=== PATIENT | male | born 1935 | race Caucasian/White ===

== ENCOUNTER 2018-03-29 10:56 | Inpatient (IN) | payer MEDICARE ==
[~2018-03-29] VITALS: Ht 170.2 cm; Wt 74.4 kg
[2018-03-29] VITALS (7 sets, daily range): BP systolic 160–184; BP diastolic 70–94
[~2018-03-29 10:56] MED LIST changes: -BICA50TA36 PO; -LEUP45SY3 SQ; -METO50TA19 PO; -NITR0.4T3 SL; -RANI-366 PO; -TRAZ150T8 PO
--- NOTE | 2018-03-29 11:17 | ER Report ---
History and Physical Time Seen By MD: 10:55 Hx. of Stated Complaint: CHEST PAIN AND DYSPNEA SINCE 1000 ([facility] SANDOVAL [facility]-) HPI/ROS CHIEF COMPLAINT: Chest pain HISTORY OF PRESENT ILLNESS: This is an 82-year-old male who presents to the emergency department via EMS for chest pain and shortness of breath. Patient states that about 10:00 today after returning from the bathroom he developed some shortness of breath, decided to sit down and eat a burrito continue to have some shortness of breath and then developed some anterior chest pain, became lightheaded, diaphoretic and had some nausea. He took one of his nitroglycerin at home, started to feel some relief. EMS was dispatched, upon arrival they did give him 1 more nitroglycerin in addition to 81mg aspirin x4. Patient states he did feel much better after the nitroglycerin. Upon arrival the patient states that his shortness of breath and chest pain have basically resolved. He is no longer nauseous or diaphoretic. Patient denies headaches, rashes, vomiting, chills or recent illnesses. REVIEW OF SYSTEMS: Constitutional: No fever, no chills. Eyes: No discharge. ENT: No sore throat. Cardiovascular: As above. Respiratory: As above. Gastrointestinal: As above. Genitourinary: No hematuria. Musculoskeletal: No back pain. Skin: No rashes. Neurological: No headache. ([facility]-) Allergies: Coded Allergies: codeine (Verified Allergy, Mild, DIZZY, 03/29/18) Home Meds Reported Medications Leuprolide Acetate (ELIGARD) 45 Mg Disp.syrin, 45 MG SQ 03/29/18 Bicalutamide (BICALUTAMIDE) 50 Mg Tablet, 50 MG PO DAILY 03/29/18 Metoprolol Succinate (METOPROLOL SUCCINATE) 50 Mg Tab.er.24h, 1 TAB PO BID, TAB 03/29/18 Trazodone Hcl (TRAZODONE HCL) 150 Mg Tablet, 150 MG PO QHS 03/29/18 Ranitidine Hcl (ZANTAC) 150 Mg Tablet, 150 MG PO BID, TAB 03/29/18 Nitroglycerin (NITROGLYCERIN) 0.4 Mg Tab.subl, 0.4 MG SL Q5MIN 03/29/18 [lipoflavonoid] No Conflict Check, 1 TAB PO DAILY 10/14/16 Tamsulosin Hcl (TAMSULOSIN HCL) 0.4 Mg Cap.er.24h, 0.4 MG PO DAILY, CAP 10/14/16 [multivit] No Conflict Check, 1 TAB PO BID 10/14/16 Lisinopril (LISINOPRIL) 10 Mg Tablet, 0.5 MG PO QDAY, TAB 10/14/16 Isosorbide Mononitrate (ISOSORBIDE MONONITRATE ER) 30 Mg Tab.er.24h, 30 MG PO DAILY 10/14/16 Hum Insulin Nph/Reg Insulin Hm (NOVOLIN 70-30 100 UNIT/ML VIAL) 100 Unit/1 Ml Vial, 100 UNIT SQ, VIAL 30 units in the morning 20 units in the evening 10/14/16 Clopidogrel Bisulfate (CLOPIDOGREL) 75 Mg Tablet, 1 TAB PO QDAY, TAB 10/14/16 Atorvastatin (LIPITOR) 80 Mg Tab, 0.5 TAB PO QHS, TAB 10/14/16 Aspirin (ASPIR 81) 81 Mg Tablet.dr, 81 MG PO QDAY, TAB 10/14/16 Discontinued Reported Medications Pantoprazole Sodium (PANTOPRAZOLE SODIUM) 40 Mg Tablet.dr, 40 MG PO QDAY, TAB.SR 10/14/16 Metoprolol Tartrate (METOPROLOL TARTRATE) 50 Mg Tab, 1.5 TAB PO BID, TAB 10/14/16 Amlodipine Besylate (AMLODIPINE BESYLATE) 5 Mg Tablet, 1 TAB PO QDAY, TAB 10/14/16 Past Medical/Surgical History Patient has a past medical and surgical history of heart attack, stents, hypertension, hypercholesterolemia, prostate cancer, wears glasses, hard of hearing with hearing aids, type II diabetes, CABG 4. ([facility]) Reviewed Nurses Notes: Yes (BENI SANDOVAL) Constitutional Vital Sign - Last 24 Hours 03/29/18 03/29/18 03/29/18 03/29/18 10:56 11:05 11:06 11:11 Temp 97.5 Pulse 73 75 Resp 17 28 B/P (MAP) 178/83 (114) Pulse Ox 96 97 O2 Delivery Nasal Cannula O2 Flow Rate 4.0 03/29/18 03/29/18 03/29/1818 11:15 11:30 11:41 11:45 Pulse 68 Resp 35 B/P (MAP) 165/75 (105) 174/75 (108) 162/71 (101) Pulse Ox 100 03/29/18 03/29/18 03/29/18 03/29/18 11:50 12:00 12:05 12:15 Pulse 68 70 Resp 27 22 B/P (MAP) 172/76 (108) 175/72 (106) Pulse Ox 100 99 03/29/18 03/29/18 03/29/18 03/29/18 12:20 12:30 12:45 12:50 Pulse 66 64 Resp 20 B/P (MAP) 164/69 (100) 161/67 (98) Pulse Ox 98 03/29/18 03/29/18 03/29/18 03/29/18 13:00 13:05 13:15 13:25 Pulse 63 65 Resp 26 20 B/P (MAP) 160/71 (100) 167/68 (101) Pulse Ox 98 98 03/29/18 03/29/18 03/29/18 03/29/18 13:30 13:40 13:45 13:55 Pulse 66 65 Resp 9 25 B/P (MAP) 174/73 (106) 173/81 (111) Pulse Ox 99 99 03/29/18 03/29/18 03/29/18 14:00 14:10 14:15 Pulse 65 Resp 21 B/P (MAP) 168/70 (102) 165/69 (101) Pulse Ox 99 (RASTA OSBORN MD) Physical Exam General Appearance: The patient is alert, has no immediate need for airway protection and no signs of toxicity. Eyes: Left pupil slightly larger than the right, it is not round, secondary to injury however both pupils are reactive to light and accommodation. No pallor or injection. ENT, Mouth: Mucous membranes are moist. Respiratory: There are no retractions, lungs are diminished throughout but clear to auscultation. Cardiovascular: Regular rate and rhythm, no murmurs, clicks or rubs. Gastrointestinal: Abdomen is soft and non tender, no masses, bowel sounds normal. Neurological: Alert and oriented 4. Moving all extremities. No focal neuro deficits. Following all commands. Skin: Warm and dry, no rashes. Healing scar to the left antecubital fossa secondary to shunt placement for dialysis. Musculoskeletal: Neck is supple non tender. Extremities are nontender, nonswollen and have full range of motion. DIFFERENTIAL DIAGNOSIS: After history and physical exam differential diagnosis was considered for chest pain including but not limited to myocardial ischemia, pericarditis pulmonary embolus, chest wall pain, pleural inflammation and pulmonary infectious causes. ([facility]-) Medical Decision Making Data Points Result Diagram: 03/29/18 1058 03/29/18 1058 Laboratory Hematology Test 03/29/18 10:58 03/29/18 13:11 Red Blood Count 4.09 M/uL (4.00-5.60) Mean Corpuscular Volume 91.9 fL (80.0-96.0) Mean Corpuscular Hemoglobin 31.0 pg (26.0-33.0) Mean Corpuscular Hemoglobin Concent 33.8 g/dL (32.0-36.0) Red Cell Distribution Width 14.2 % (11.5-14.5) Mean Platelet Volume 9.2 fL (7.2-11.1) Neutrophils (%) (Auto) 74.5 % (39.4-72.5) Lymphocytes (%) (Auto) 15.9 % (17.6-49.6) Monocytes (%) (Auto) 8.1 % (4.1-12.4) Eosinophils (%) (Auto) 1.1 % (0.4-6.7) Basophils (%) (Auto) 0.4 % (0.3-1.4) Nucleated RBC Relative Count (auto) 0.0 /100WBC Neutrophils # (Auto) 7.1 K/uL (2.0-7.4) Lymphocytes # (Auto) 1.5 K/uL (1.3-3.6) Monocytes # (Auto) 0.8 K/uL (0.3-1.0) Eosinophils # (Auto) 0.1 K/uL (0.0-0.5) Basophils # (Auto) 0.0 K/uL (0.0-0.1) Nucleated RBC Absolute Count (auto) 0.00 K/uL Sodium Level 142 mmol/L (137-145) Potassium Level 4.7 mmol/L (3.5-5.0) Chloride Level 107 mmol/L (98-107) Carbon Dioxide Level 21 mmol/L (22-30) Blood Urea Nitrogen 31 mg/dl (9-21) Creatinine 3.10 mg/dl (0.66-1.25) Glomerular Filtration Rate Calc 19.4 Random Glucose 132 mg/dl (75-110) Calcium Level 9.3 mg/dl (8.4-10.2) Total Bilirubin 0.6 mg/dl (0.2-1.3) Aspartate Amino Transf (AST/SGOT) 23 U/L (0-35) Alanine Aminotransferase (ALT/SGPT) 13 U/L (0-56) Alkaline Phosphatase 83 U/L (0-126) B-Type Natriuretic Peptide 1350 pg/ml (0-100) Total Protein 6.7 gm/dl (6.3-8.2) Albumin 3.7 g/dl (3.5-5.0) Troponin I 0.030 ng/ml Chemistry Test 03/29/18 10:58 03/29/18 13:11 White Blood Count 9.5 k/uL (4.5-11.0) Red Blood Count 4.09 M/uL (4.00-5.60) Hemoglobin 12.7 g/dL (14.0-18.0) Hematocrit 37.6 % (42.0-52.0) Mean Corpuscular Volume 91.9 fL (80.0-96.0) Mean Corpuscular Hemoglobin 31.0 pg (26.0-33.0) Mean Corpuscular Hemoglobin Concent 33.8 g/dL (32.0-36.0) Red Cell Distribution Width 14.2 % (11.5-14.5) Platelet Count 172 K/uL (150-450) Mean Platelet Volume 9.2 fL (7.2-11.1) Neutrophils (%) (Auto) 74.5 % (39.4-72.5) Lymphocytes (%) (Auto) 15.9 % (17.6-49.6) Monocytes (%) (Auto) 8.1 % (4.1-12.4) Eosinophils (%) (Auto) 1.1 % (0.4-6.7) Basophils (%) (Auto) 0.4 % (0.3-1.4) Nucleated RBC Relative Count (auto) 0.0 /100WBC Neutrophils # (Auto) 7.1 K/uL (2.0-7.4) Lymphocytes # (Auto) 1.5 K/uL (1.3-3.6) Monocytes # (Auto) 0.8 K/uL (0.3-1.0) Eosinophils # (Auto) 0.1 K/uL (0.0-0.5) Basophils # (Auto) 0.0 K/uL (0.0-0.1) Nucleated RBC Absolute Count (auto) 0.00 K/uL Glomerular Filtration Rate Calc 19.4 Calcium Level 9.3 mg/dl (8.4-10.2) Total Bilirubin 0.6 mg/dl (0.2-1.3) Aspartate Amino Transf (AST/SGOT) 23 U/L (0-35) Alanine Aminotransferase (ALT/SGPT) 13 U/L (0-56) Alkaline Phosphatase 83 U/L (0-126) B-Type Natriuretic Peptide 1350 pg/ml (0-100) Total Protein 6.7 gm/dl (6.3-8.2) Albumin 3.7 g/dl (3.5-5.0) Troponin I 0.030 ng/ml ([facility]) EKG/Imaging EKG Interpretation 12 lead EKG: Time of EKG 1058. Rhythm: Normal sinus rhythm, 75 bpm. [place]: normal QRS: normal ST segments: About a half box of ST elevation in V1, and lead 3. Otherwise no other ST depression or elevation identified. 12 lead EKG: Repeat EKG time 1310. Rhythm: Normal sinus rhythm, ventricular rate 61 bpm. [place]: normal QRS: normal ST segments: About a half box of ST elevation in V1, and lead 3. Otherwise no other ST depression or elevation identified. No EKG changes from the initial EKG. Imaging Location: [facility] [place] Patient: Misael Gil : 1935 Visit/Account:[id number] Date of Sevice: 03/29/2018 Exam type: CHEST PA AND LAT History: Chest Pain Comparison: None. Findings: There are sternotomy sutures present. There is blunting of both costophrenic angles, right greater than left consistent with pleural thickening versus pleural effusions. Patchy airspace consolidation seen throughout the right mid and lower lung field and the left lung base. Differential diagnosis would include chronic changes versus an acute infectious/inflammatory process. Pleural-based calcifications are seen over the inferior aspect the left thorax. The cardiac silhouette is normal in size. IMPRESSION: 1. Blunting of both costophrenic angles, right greater than left consistent with pleural thickening versus pleural effusions Patchy airspace consolidation seen throughout the right mid and lower lung field left lung base. Differential diagnosis would include chronic changes versus an acute infectious/inflammatory process. There are no old films of elbow for comparison Pleural-based calcination occasions are present over the inferior aspect the left thorax Report Dictated By: Rhea Mclean MD at 03/29/2018 11:41 AM Report E-Signed By: Rhea Mclean MD at 03/29/2018 11:43 AM WSN:[email or web address] ([facility]) ED Course/Re-evaluation Clinical Indication for ER IV: IV Access ED Course The patient was admitted to room. A history and physical were obtained. Differential diagnoses were considered. An IV started. A CBC, CMP, troponin, and BNP were obtained. CBC unremarkable. Chemistries showing BUN 31, creatinine 3.10, troponins negative 2 however the 2nd troponin did bump to .030, BNP 1350. Two-view chest x-ray showing blunting of both cosmetic angles, consistent with pleural thickening versus pleural effusions. Patchy airspace consolidation on the right and left lung bases could be an acute infectious process however, also be inflammatory process. The agent at this time is afebrile, normotensive and heart rate in the 60s so at this point an infectious process is unlikely. This is likely a congestive heart failure exacerbation. I did review these results with the patient and the family and did tell them that I would like to discuss this case with Dr. Verdugo the hospitalist and get his input on whether or not he feels that he could manage this as an inpatient or this is something he feels we should send to another facility. Dr. Verdugo I felt that he could manage the exacerbation inpatient and the patient will be admitted to the medical surgical unit. I did review this with the family and are in agreement with the plan of care. At the time of admission the patient is pain-free, no shortness of breath has no complaints at this time. 03/29/2018 1:57:44 pm I did speak with Dr. Verdugo who is on-call for the hospitalist group, we discussed the case and he is except for the patient in to his services for ingestive heart failure exacerbation. The patient and family are in agreement with this plan of care the patient will be admitted to the medical surgical unit. Decision to Disposition Date: March 29, 2018 Decision to Disposition Time: 13:57 (BENI SANDOVAL) Depart Departure Latest Vital Signs Vital Signs Date Time Temp Pulse Resp B/P (MAP) Pulse Ox O2 Delivery O2 Flow Rate FiO2 03/29/18 14:15 165/69 (101) 03/29/18 14:10 65 21 99 03/29/18 11:06 4.0 03/29/18 10:56 97.5 Nasal Cannula (RASTA OSBORN MD) Impression: Primary Impression: CHF exacerbation Condition: Improved Disposition: Admitted from ER [facility] [facility]/PA consult with MD: Examined Patient MD Consult Note: I saw this patient along with Beni at the patient's arrival. Chest pain relieved by aspirin and nitro. History of significant cardiovascular and renal disease as noted. Initial EKG without signs of STEMI. Initial troponin was negative and repeat with negligible change. Elevated BNP and chest x-ray appears to show signs of congestion, radiology read as possible consolidation. Repeat EKG unchanged. The patient will be admitted here for what appears to be CHF exacerbation. (RASTA OSBORN MD) Problem Qualifiers Primary Impression: CHF exacerbation Heart failure type: unspecified Qualified Codes: I50.9 - Heart failure, unspecified BENI SANDOVAL March 29, 2018 11:17 RASTA OSBORN MD March 29, 2018 13:49
[2018-03-29 11:27] LABS: PLATELET COUNT, AUTOMATED 172 K/uL (150-450)
[2018-03-29] MEDS ORDERED: METO50TA19 PO (11:29)
[2018-03-29] MEDS ORDERED: NITR0.4T3 SL (11:29)
[2018-03-29] MEDS ORDERED: BICA50TA36 PO (11:29)
[2018-03-29] MEDS ORDERED: TRAZ150T8 PO (11:29)
[2018-03-29] MEDS ORDERED: LEUP45SY3 SQ (11:29)
[2018-03-29] MEDS ORDERED: RANI-366 PO (11:29)
--- NOTE | 2018-03-29 11:47 | RADIOLOGY IMAGING REPORT ---
FACILITY: [facility] PATIENT NAME: Misael Gil : 1935 MR: [id number] V: [id number] EXAM DATE: ORDERING PHYSICIAN: DOMONIQUE SANDOVAL TECHNOLOGIST: [place] [facility] [place] Misael Gil : 1935 Visit/Account:[id number] Date of Sevice: 03/29/2018 Exam type: CHEST PA AND LAT History: Chest Pain Comparison: None. Findings: There are sternotomy sutures present. There is blunting of both costophrenic angles, right greater t [place] left consistent with pleural thickening versus pleural effusions. Patchy airspace consolidation seen throughout the right mid and lower lung field and the left lung base. Differential diagnosis wo uld include chronic changes versus an acute infectious/inflammatory process. Pleural-based calcifica tions are seen over the inferior aspect the left thorax. The cardiac silhouette is normal in size. IMPRESSION: 1. Blunting of both costophrenic angles, right greater than left consistent with pleural thickening versus pleural effusions Patchy airspace consolidation seen throughout the right mid and lower lung field left lung base. Dif ferential diagnosis would include chronic changes versus an acute infectious/inflammatory process. T here are no old films of elbow for comparison Pleural-based calcination occasions are present over the inferior aspect the left thorax Report Dictated By: Rhea Mclean MD at 03/29/2018 11:41 AM Report E-Signed By: Rhea Mclean MD at 03/29/2018 11:43 AM WSN:[email or web address]
--- NOTE | 2018-03-29 12:01 | EKG ---
FACILITY: [facility] PATIENT NAME: SKY GRANDE : [id number] MR: [id number] V: [id number] EXAM DATE: ORDERING PHYSICIAN: DOMONIQUE SANDOVAL TECHNOLOGIST: Tanvir Mora Reason : Blood Pressure : / mmHG Vent. Rate : 075 BPM Atrial Rate : 075 BPM P-R Int : 188 ms QRS Dur : 114 ms QT Int : 424 ms P-R-T Axes : 047 010 091 degrees QTc Int : 473 ms Normal sinus rhythm Inferior infarct (cited on or before 29-MAR-2018) Abnormal ECG When compared with ECG of 14-OCT-2016 23:23, NC interval has decreased T wave inversion less evident in Lateral leads Confirmed by RAMONITA BERNABE ([id number]) on 03/31/2018 11:20:45 AM Referred By: Confirmed By:RAMONITA BERNABE
--- NOTE | 2018-03-29 13:15 | EKG ---
FACILITY: [facility] PATIENT NAME: SKY GRANDE : [id number] MR: [id number] V: [id number] EXAM DATE: ORDERING PHYSICIAN: DOMONIQUE SANDOVAL TECHNOLOGIST: Tanvir Mora Reason : Blood Pressure : / mmHG Vent. Rate : 061 BPM Atrial Rate : 061 BPM P-R Int : 208 ms QRS Dur : 108 ms QT Int : 448 ms P-R-T Axes : 064 -01 113 degrees QTc Int : 450 ms Normal sinus rhythm Inferior infarct (cited on or before 29-MAR-2018) Abnormal ECG When compared with ECG of 29-MAR-2018 10:58, No significant change was found Confirmed by RAMONITA BERNABE ([id number]) on 03/31/2018 11:21:00 AM Referred By: Confirmed By:RAMONITA BERNABE
[2018-03-29] MEDS ORDERED: FLUSH 10 ML SYR IVP PRN (16:30)
[2018-03-29] MEDS ORDERED: ACETAMINOPHEN 325 MG TAB PO PRN (16:30)
[2018-03-29] MEDS ORDERED: ONDANSETRON 4 MG/2 ML VIAL IVP PRN (16:30)
[2018-03-29] MEDS ORDERED: traZODone HCL 50 MG TAB PO PRN (16:35)
[2018-03-29] MEDS ORDERED: POTASSIUM CHL 20 MEQ TABCR PO SCH (17:00)
--- NOTE | 2018-03-29 17:33 | History & Physical ---
History of Present Illness Chief Complaint Chest pain and Dyspnea History of Present Illness is an 82-year-old male with PMH od HTN, DM-II, CKD:Stage-IV, Prostate Cancer, CAD s/p CABG and 4 stents with h/o CHF who presented to the emergency department via EMS for chest pain and shortness of breath. Patient states that about 10:00 today after returning from the bathroom he developed some shortness of breath, decided to sit down and eat a burrito continue to have some shortness of breath and then developed some anterior chest pain, became lightheaded, diaphoretic and had some nausea. He took one of his nitroglycerin at home, started to feel some relief. EMS was dispatched, upon arrival they did give him 1 more nitroglycerin in addition to 81 mg aspirin. Patient states he did feel much better after the nitroglycerin. Upon arrival the patient states that his shortness of breath and chest pain have basically resolved. He is no longer nauseous or diaphoretic. Patient denies headaches, rashes, vomiting, chills or recent illnesses. ER Course: "The patient was admitted to room. A history and physical were obtained. Differential diagnoses were considered. An IV started. A CBC, CMP, troponin, and BNP were obtained. CBC unremarkable. Chemistries showing BUN 31, creatinine 3.10 and he has AVF with good thrill, troponins negative 2 however the 2nd troponin did bump to .030, BNP 1350. Two-view chest x-ray showing blunting of both cosmetic angles, consistent with pleural thickening versus pleural effusions. Patchy airspace consolidation on the right and left lung bases could be an acute infectious process however, also be inflammatory process. The patient at this time is afebrile, normotensive and heart rate in the 60s so at this point an infectious process is unlikely. This is likely a congestive heart failure exacerbation. I did review these results with the patient and the family and did tell them that I would like to discuss this case with Dr. Hernandes the hospitalist and get his input on whether or not he feels that he could manage this as an inpatient or this is something he feels we should send to another facility. Dr. Hernandes I felt that he could manage the exacerbation inpatient and the patient will be admitted to the medical surgical unit. I did review this with the family and are in agreement with the plan of care. At the time of admission the patient is pain-free, no shortness of breath has no complaints at this time." On arrival to the floor, He was asymptomatic and hemodynamically stable without any cardiac issue. I discussed the case with the ER-MD History Home Meds Reported Medications Leuprolide Acetate (ELIGARD) 45 Mg Disp.syrin, 45 MG SQ 03/29/18 Bicalutamide (BICALUTAMIDE) 50 Mg Tablet, 50 MG PO DAILY 03/29/18 Metoprolol Succinate (METOPROLOL SUCCINATE) 50 Mg Tab.er.24h, 1 TAB PO BID, TAB 03/29/18 Trazodone Hcl (TRAZODONE HCL) 150 Mg Tablet, 150 MG PO QHS 03/29/18 Ranitidine Hcl (ZANTAC) 150 Mg Tablet, 150 MG PO BID, TAB 03/29/18 Nitroglycerin (NITROGLYCERIN) 0.4 Mg Tab.subl, 0.4 MG SL Q5MIN 03/29/18 [lipoflavonoid] No Conflict Check, 1 TAB PO DAILY 10/14/16 Tamsulosin Hcl (TAMSULOSIN HCL) 0.4 Mg Cap.er.24h, 0.4 MG PO DAILY, CAP 10/14/16 [multivit] No Conflict Check, 1 TAB PO BID 10/14/16 Lisinopril (LISINOPRIL) 10 Mg Tablet, 0.5 MG PO QDAY, TAB 10/14/16 Isosorbide Mononitrate (ISOSORBIDE MONONITRATE ER) 30 Mg Tab.er.24h, 30 MG PO DAILY 10/14/16 Hum Insulin Nph/Reg Insulin Hm (NOVOLIN 70-30 100 UNIT/ML VIAL) 100 Unit/1 Ml Vial, 100 UNIT SQ, VIAL 30 units in the morning 20 units in the evening 10/14/16 Clopidogrel Bisulfate (CLOPIDOGREL) 75 Mg Tablet, 1 TAB PO QDAY, TAB 10/14/16 Atorvastatin (LIPITOR) 80 Mg Tab, 0.5 TAB PO QHS, TAB 10/14/16 Aspirin (ASPIR 81) 81 Mg Tablet.dr, 81 MG PO QDAY, TAB 10/14/16 Discontinued Reported Medications Pantoprazole Sodium (PANTOPRAZOLE SODIUM) 40 Mg Tablet.dr, 40 MG PO QDAY, TAB.SR 10/14/16 Metoprolol Tartrate (METOPROLOL TARTRATE) 50 Mg Tab, 1.5 TAB PO BID, TAB 10/14/16 Amlodipine Besylate (AMLODIPINE BESYLATE) 5 Mg Tablet, 1 TAB PO QDAY, TAB 10/14/16 Allergies: Coded Allergies: codeine (Verified Allergy, Mild, DIZZY, 03/29/18) Hx Smoking: Yes (quit 50 yrs ago) Smoking Status: Former Smoker Hx Alcohol Use: No Hx Substance Use Disorder: No Review of Systems Constitutional: Weight Gain, No Fever, No Weight Loss, No Chills Neurological: Weakness, Dizziness, No Syncope, No Confusion, No Slurred Speech Cardiovascular: Chest Pain, No Palpitations Respiratory: Shortness of Breath, No Cough, No Wheezing Gastrointestinal: Nausea, No Vomiting, No Diarrhea, No Dysphagia, No Constipation, No Early Satiety, No Hematemesis, No Hematochezia, No Melena, No Abdominal Pain, No Other Genitourinary: No Dysuria, No Hematuria Musculoskeletal: No Pain, No Sprain, No Strain, No Impaired Mobility Psychiatric: No Depression, No Anxiety Exam Vital Signs Vital Signs Date Time Temp Pulse Resp B/P (MAP) Pulse Ox O2 Delivery O2 Flow Rate FiO2 03/29/18 15:10 97.7 70 26 171/72 (105) 98 Nasal Cannula 4.0 General Appearance: Alert, Awake, No Acute Distress, Afebrile Neuro: No Gross deficits Eyes: PERRLA ENT: Normal Neck: No Masses Cardiovascular: Normal Rhythm & Peripheral Pulses, No Edema, No JVD Respiratory: No Respiratory Distress Chest: No Masses GI: Abd Soft and Non-Tender : Normal, No CVA Tenderness Extremities: Soft and Non Tender, Warm, Pulses Integumentary: Skin Intact without Lesion / Mass Psych: Alert & Oriented X3, Appropriate Mood & Affect Medical Decision Making Data Points Result Diagram: 03/29/18 1058 03/29/18 1058 Pre-Admit Course ED Medications reviewed Medical Record Review: Yes Assessment and Plan Problems: (1) CHF exacerbation Status: Acute Assessment & Plan: I will admit the patient to the medical floor for further evaluation and management. I will use Tele unit I will start Lasix 80mg IV bid I will give KCL 20meq bid I will continue his Lisinopril, ASA, Plavix, Lipitor, Imdur, Metoprolol and NTG as needed I will use SCD for DVTP I will use Protonix 40mg po qd for GIP (2) Stage 4 chronic kidney disease Status: Chronic Assessment & Plan: He has CKD-IV with GFR 19ml/min with maturing AVF I will use Lasix 80mg IV bid I will get BMP in am (3) Diabetes Status: Chronic Assessment & Plan: I will manage his DM during this hospital stay with sliding scale with Regular Insulin. Condition Guarded Time Spent on Plan of Care: > 30 min Copies to: KURTIS BERNARDO MD Venous Thromboembolism VTE Risk Physician Assess for VTE Risk: Yes Patient's VTE Risk: Low VTE Diagnostic Test 2 Days Prior to Admit: No Antithrombotics Is Pt On Any Antithrombotics?: No Exam Sepsis Risk: No Definite Risk Problem Qualifiers (1) CHF exacerbation: Heart failure type: unspecified Qualified Codes: I50.9 - Heart failure, unspecified (2) Diabetes: Diabetes mellitus type: type 2 DALLAS HERNANDES MD March 29, 2018 17:33
[2018-03-29] MEDS: FUROSEMIDE 40 MG/4 ML VIAL IVP SCH (17:34)
[2018-03-29] MEDS: NITROGLYCERIN 0.4 MG SUBL SL PRN ×2 (18:38→18:47)
[2018-03-29] MEDS: METOPROLOL SUCC XL 50 MG TABCR 50 MG TAB.ER.24H PO SCH (20:35)
[2018-03-29] MEDS: LISINOPRIL 5 MG TAB PO SCH (20:36)
[2018-03-29] MEDS: TAMSULOSIN HCL 0.4 MG CAP PO SCH (20:36)
[2018-03-29] MEDS: PANTOPRAZOLE SOD 40 MG TABEC PO SCH (20:36)
[2018-03-29] MEDS: ATORVASTATIN 40 MG TAB PO SCH (20:36)
[2018-03-29] MEDS: INSULIN HUMAN REGULAR SLIDING SCALE SC PRN (21:38)
[2018-03-29] MEDS ORDERED: ISOSORBIDE MONONITR 30MG TABCR PO ONE (23:45)
[2018-03-30 03:27] VITALS: BP 150/64
[2018-03-30] MEDS: FUROSEMIDE 40 MG/4 ML VIAL IVP SCH ×2 (04:58→16:38)
[2018-03-30 06:09] LABS: PLATELET COUNT, AUTOMATED 145 K/uL (150-450)
--- NOTE | 2018-03-30 06:39 | RADIOLOGY IMAGING REPORT ---
[place] [facility] [place] Misael Gil : 1935 MR: [id number] V: [id number] EXAM DATE: ORDERING PHYSICIAN: DALLAS HERNANDES TECHNOLOGIST: Location: [facility] Patient: Misael Gil : 1935 Visit/Account:[id number] Date of Sevice: 03/30/2018 SINGLE AP RADIOGRAPH OF THE CHEST 03/30/2018 8:00 AM. INDICATION: bilat congestion CHF COMPARISON: Yesterday. FINDINGS: Lungs are overall well-expanded. Persistent bilateral blunting of the costophrenic sulci again may r epresent chronic pleural parenchymal changes versus effusions. Persistent but improved bilateral mix ed opacification including suspected pulmonary edema. No pneumothorax. Calcified pleural plaques at the left base. Postoperative appearance of the mediastinum/sternum consistent with CABG. Heart siz e is unchanged. IMPRESSION: Persistent but improved bilateral mixed pulmonary opacification, including pulmonary angelina a. Report Dictated By: Michael Shields MD at 03/30/2018 6:32 AM Report E-Signed By: Michael Shields MD at 03/30/2018 6:34 AM WSN:[id number]
[2018-03-30 07:21] VITALS: BP 135/66
[2018-03-30] MEDS: INSULIN HUMAN REGULAR SLIDING SCALE SC PRN ×3 (07:27→16:37)
[2018-03-30] MEDS: ASPIRIN 81 MG ENTERIC COATED PO SCH (08:43)
[2018-03-30] MEDS: CLOPIDOGREL BISULFATE 75MG TAB PO SCH (08:43)
[2018-03-30] MEDS: METOPROLOL SUCC XL 50 MG TABCR 50 MG TAB.ER.24H PO SCH ×2 (08:43→20:28)
[2018-03-30] MEDS: ISOSORBIDE MONONITR 30MG TABCR PO SCH (08:43)
[2018-03-30] MEDS ORDERED: HEPARIN (PORC) 5000 UN/ML VIAL IVP ONE (09:00)
[2018-03-30] MEDS ORDERED: LISINOPRIL 5 MG TAB PO SCH (09:00)
[2018-03-30] MEDS ORDERED: HEPARIN* SOD/D5W 25000 U/500ML 500 ML IV SCH (09:00)
[2018-03-30] MEDS ORDERED: ATORVASTATIN 40 MG TAB PO SCH (09:00)
[2018-03-30] MEDS ORDERED: TAMSULOSIN HCL 0.4 MG CAP PO SCH (09:00)
[2018-03-30] MEDS ORDERED: METOPROLOL SUCC XL 50 MG TABCR 50 MG TAB.ER.24H PO SCH (09:00)
[2018-03-30] MEDS ORDERED: PANTOPRAZOLE SOD 40 MG TABEC PO SCH (09:00)
[2018-03-30] MEDS ORDERED: NS(*) 0.9% 500 ML BAG 500 ML ONE (09:25)
--- NOTE | 2018-03-30 10:01 | EKG ---
[facility] PATIENT NAME: SKY GRANDE : [id number] MR: [id number] V: [id number] EXAM DATE: ORDERING PHYSICIAN: DALLAS HERNANDES TECHNOLOGIST: ALINA Mora Reason : ELEVATED TROPONIN Blood Pressure : / mmHG Vent. Rate : 059 BPM Atrial Rate : 059 BPM P-R Int : 182 ms QRS Dur : 106 ms QT Int : 482 ms P-R-T Axes : 072 008 107 degrees QTc Int : 477 ms Sinus bradycardia Inferior infarct (cited on or before 29-MAR-2018) Abnormal ECG When compared with ECG of 29-MAR-2018 13:10, No significant change was found Confirmed by RAMONITA BERNABE ([id number]) on 03/31/2018 11:22:07 AM Referred By: GRETA Confirmed By:RAMONITA BERNABE
[2018-03-30 10:58] VITALS: Ht 170.2 cm; Wt 74.4 kg
[2018-03-30 11:14] VITALS: BP 92/48
--- NOTE | 2018-03-30 12:59 | Hospitalist Progress Note ---
Subjective Progress Notes Subjective 03/29: is an 82-year-old male with PMH od HTN, DM-II, CKD:Stage-IV, Prostate Cancer, CAD s/p CABG and 4 stents with h/o CHF who presented to the emergency department via EMS for chest pain and shortness of breath. Patient states that about 10:00 today after returning from the bathroom he developed some shortness of breath, decided to sit down and eat a burrito continue to have some shortness of breath and then developed some anterior chest pain, became lightheaded, diaphoretic and had some nausea. He took one of his nitroglycerin at home, started to feel some relief. EMS was dispatched, upon arrival they did give him 1 more nitroglycerin in addition to 81 mg aspirin. Patient states he did feel much better after the nitroglycerin. Upon arrival the patient states that his shortness of breath and chest pain have basically resolved. He is no longer nauseous or diaphoretic. Patient denies headaches, rashes, vomiting, chills or recent illnesses. ER Course: "The patient was admitted to room. A history and physical were obtained. Differential diagnoses were considered. An IV started. A CBC, CMP, troponin, and BNP were obtained. CBC unremarkable. Chemistries showing BUN 31, creatinine 3.10 and he has AVF with good thrill, troponins negative 2 however the 2nd troponin did bump to .030, BNP 1350. Two-view chest x-ray showing blunting of both cosmetic angles, consistent with pleural thickening versus pleural effusions. Patchy airspace consolidation on the right and left lung bases could be an acute infectious process however, also be inflammatory process. The patient at this time is afebrile, normotensive and heart rate in the 60s so at this point an infectious process is unlikely. This is likely a congestive heart failure exacerbation. I did review these results with the patient and the family and did tell them that I would like to discuss this case with Dr. Hernandes the hospitalist and get his input on whether or not he feels that he could manage this as an inpatient or this is something he feels we should send to another facility. Dr. Hernandes I felt that he could manage the exacerbation inpatient and the patient will be admitted to the medical surgical unit. I did review this with the family and are in agreement with the plan of care. At the time of admission the patient is pain-free, no shortness of breath has no complaints at this time." On arrival to the floor, He was asymptomatic and hemodynamically stable without any cardiac issue. I discussed the case with the ER-MD 03/30: Today patient is afebrile and hemodynamically stable without any significant complaint. He had an episode of chest pain and pressure last night but he remains stable. He is currently on ASA, Lisinopril, Imdur, NTG pren, Metoprolol with Hr in 60's, Plavix and Statin. His first 3 troponins were negative but this am his troponin gradually increased to 0.169. He also has stage 4 CKD. His EKG revealed possibly inferior wall MA. His Echo is pending. I have discussed the case with his family at length. Non thrombolytic Heparin protocol was started this am. I also discussed the case with the drill sharpener operator group of [place] and presented the data to the drill sharpener operator construction equipment operator. He recommended medical management and told me that he would not get benefit from cardiac cath. and will require dialysis. He agreed with my management. I also discussed the code status with him and his family. Patient Complains of: Neurological: No: Confusion, Weakness, Dizziness Cardiovascular: No: Chest Pain, Palpitations Respiratory: No: Cough, Congestion, Shortness of Breath, Wheezing Gastrointestinal: Bowel Movement, Other, No Nausea, No Vomiting, No Flatus Genitourinary: No Dysuria, No Hematuria Musculoskeletal: No: Pain, Sprain, Strain, Impaired Mobility Physical Exam Vital Signs Date Time Temp Pulse Resp B/P (MAP) Pulse Ox O2 Delivery O2 Flow Rate FiO2 03/30/18 11:14 97.7 63 18 92/48 (63) 98 Nasal Cannula 3.0 Intake and Output 03/31/18 06:59 Intake Total 120 ml Output Total 325 ml Balance -205 ml Intake Oral 120 ml Output Urine Total 325 ml # Voids 1 General Appearance: Alert, Awake, No Acute Distress, Afebrile Neuro: No Gross deficits Eyes: PERRLA ENT: Normal Cardiovascular: Normal Rhythm & Peripheral Pulses, No Edema, No JVD Respiratory: No Respiratory Distress GI: Soft and Non-Tender Extremities: Soft and Non Tender Integumentary: Skin Intact without Lesion / Mass Psych: Alert & Oriented X3, Appropriate Mood & Affect Result Diagram: 03/30/1858 03/30/1858 Assessment and Plan Problems: (1) Acute coronary syndrome Status: Acute Assessment & Plan: I discussed the case with [place] group of drill sharpener operator and recommended to continue the medical management, not a candidate for C.angiogram His Troponin is 0.169 and EKG showed inferior leads, II and AVF with mild ST-T changes I will continue his ASA, ACEI, Beta Louis, Statin, Nitrates and plavix I already have started non thrombolytic heparin protocol for his possible inferior MA Echo is pending (2) CHF exacerbation Status: Acute Assessment & Plan: I will admit the patient to the medical floor for further evaluation and management. I will use Tele unit I will start Lasix 80mg IV bid I will give KCL 20meq bid I will continue his Lisinopril, ASA, Plavix, Lipitor, Imdur, Metoprolol and NTG as needed I will use SCD for DVTP I will use Protonix 40mg po qd for GIP 03/30: I will hold his KCL supplementation I will continue Lasix 80mg IV q 12h I will repeat BMP, BNP, CBC in am (3) Stage 4 chronic kidney disease Status: Chronic Assessment & Plan: He has CKD-IV with GFR 19ml/min with maturing AVF I will use Lasix 80mg IV bid I will get BMP in am (4) Diabetes Status: Chronic Assessment & Plan: I will manage his DM during this hospital stay with sliding scale with Regular Insulin. Time Spent on Plan of Care: > 30 min Copies to: KURTIS BERNARDO MD Exam Sepsis Risk: No Definite Risk Problem Qualifiers (1) CHF exacerbation: Heart failure type: unspecified Qualified Codes: I50.9 - Heart failure, unspecified (2) Diabetes: Diabetes mellitus type: type 2 DALLAS HERNANDES MD March 30, 2018 12:59
[2018-03-30 15:08] VITALS: BP 95/51
[2018-03-30 18:32] VITALS: BP 109/52
[2018-03-30] MEDS: ATORVASTATIN 40 MG TAB PO SCH (20:28)
[2018-03-30] MEDS: PANTOPRAZOLE SOD 40 MG TABEC PO SCH (20:29)
[2018-03-30] MEDS: LISINOPRIL 5 MG TAB PO SCH (20:29)
[2018-03-30] MEDS: TAMSULOSIN HCL 0.4 MG CAP PO SCH (20:29)
[2018-03-30 23:19] VITALS: BP 121/53
[2018-03-31] VITALS (7 sets, daily range): BP systolic 76–127; BP diastolic 42–55
[2018-03-31] MEDS: FUROSEMIDE 40 MG/4 ML VIAL IVP SCH (05:01)
[2018-03-31] MEDS ORDERED: NS(*) 0.9% 500 ML BAG 500 ML ONE (05:11)
[2018-03-31] MEDS: INSULIN HUMAN REGULAR SLIDING SCALE SC PRN ×3 (07:50→16:47)
[2018-03-31 08:03] LABS: PLATELET COUNT, AUTOMATED 124 K/uL (150-450)
[2018-03-31] MEDS: CLOPIDOGREL BISULFATE 75MG TAB PO SCH (08:45)
[2018-03-31] MEDS: METOPROLOL SUCC XL 50 MG TABCR 50 MG TAB.ER.24H PO SCH ×2 (08:46→20:24)
[2018-03-31] MEDS: ASPIRIN 81 MG ENTERIC COATED PO SCH (08:46)
[2018-03-31] MEDS: ISOSORBIDE MONONITR 30MG TABCR PO SCH (08:46)
--- NOTE | 2018-03-31 10:06 | Medical Nutrition Therapy ---
Nutrition Anthropometrics Height (Inches): 67.00 Height (Calculated Centimeters: 170.767303 Weight (Pounds): 167 Weight (Calculated Kilograms): 75.750 BMI Calculated: 26.62 Joe Nutrition Score: Adequate Joe Nutrition Risk Score: 20 Dietary Referral Nutrition Risk Factors: Nutrition Risk Comment: Physical Findings Physical Appearance: Overweight BMI 25-29 Skin Appearance Skin Appearance: Edema Edema Location Modifier: Left Edema Location: Arm Type of Edema: Degree of Edema: 2+ Gastrointestinal Symptoms GI Symtoms: Tube Present: Bowel Sounds: Recent Bowel Pattern: Stool Characteristics: Nutritional Diagnosis Nutritional Risk Acuity 2: CHF w/Complication, Chronic Renal Failure (Stage 4 CKD) Nutritional Risk Acuity 3: Cancer (Prostate cancer) Past Medical History: Orthostatic hypotension, autonomic dysreflexia, prostate cancer, CHF exacerbation, T2DM, Stage IV CKD, acute coronary syndrome Nutritional Acuity: 2-Moderate Nutrition Diagnosis: Inappropriate Carb Intake Nutrition Etiology: Physiological Causes Nutrition Problem/Etiology/Sym: Inappropriate food and carb intake related to CHF complicatios and T2DM AEB elevated random blood glucose 157 and GFR 15.4. Energy Requirement: 2034 ([place] 1423 X AF(1.3) X SF (1.1)) Protein Requirement: 53 (.7g/kg X 75/75kg low protein needs due to Stage IV CKD ) Fluid Requirement: 1893 (25 ml/kg pt >75 yrs 25ml X 75.75 kg ) Diet Type: CHF Diet Nutrition Intervention: Cont diet as ordered, Encourage intake, Incr diet as tolerated Additional Diet Restrictions: adequate and not excessive protein Diet Comment To RSA: DO NOT OFFER NUTRTION SUPPLEMENT Nutrition Monitoring & Eval Nutrition Goals: Eat 50-100% Meal RD Patient Assessment Time: [address] Assessment Type: RD Assessment Patient Nutrition Acuity: 2-Moderate Follow Up Date: April 03, 2018 Nutritional Comment: 03/30: Pt admitted for chest pain and shortness of breath. Pt is on CHF diet with meal intake of 100% and 450ml fluids. Pt has low Hgb 12.6, Hct 36.1, elevated K+ 5.3. This can concering due to stage 4 CDK. Pt has elevated BUN 37, troponin .169, and creatinine 3.00. Pt also has elevated randome blood glucose 278. Pt may benefit from a diabetic diet corresponding with CHF diet. Continue to monitor blood glucose, NA and K+ and encourage intake.-ND 03/31: Pt has no complaints. In Madi Verdugo note the discussion of dialysis will be now required. Pt continues on CHF diet with intake of 75-100%. Pt labs indicate elevate random blood glucose 157, BUN 53, GFR 15.4 and elevated creatinine 3.8. Pt has mild wt loss (03/30) 170lbs and today 167lbs, however this could be realted to fluid loss, due to pt having edema. Pt may benefit from low protein diet due to pt GFR 15.4. Continue to monitor pt labs and prgress.-ND AMOL ANDRE March 31, 2018 09:00
--- NOTE | 2018-03-31 10:25 | Hospitalist Progress Note ---
Physical Exam Vital Signs Date Time Temp Pulse Resp B/P (MAP) Pulse Ox O2 Delivery O2 Flow Rate FiO2 03/31/18 08:05 98 Nasal Cannula 2.0 03/31/18 07:52 97.9 66 16 127/55 (79) 65 Intake and Output 04/01/18 06:59 Intake Total 240 ml Output Total 680 ml Balance -440 ml Intake Oral 240 ml Output Urine Total 680 ml # Voids 3 Result Diagram: 03/31/18 0755 03/31/18 0755 Assessment and Plan Problems: (1) Acute coronary syndrome Status: Acute Assessment & Plan: I discussed the case with [place] group of fig caprifier and recommended to continue the medical management, not a candidate for C.angiogram His Troponin is 0.169 and EKG showed inferior leads, II and AVF with mild ST-T changes I will continue his ASA, ACEI, Beta Louis, Statin, Nitrates and plavix I already have started non thrombolytic heparin protocol for his possible inferior CT Echo is pending 03/31 - We did stop the heparin infusion today. His troponin is trending down. The echocardiogram is pending. (2) Acute systolic (congestive) heart failure Assessment & Plan: He did have an elevated BNP and his echocardiogram showed an ejection fraction of 36%. He was started on Lasix, but this has now been stopped secondary to an increased creatinine. He is already on chronic treatment with lisinopril and metoprolol. The lisinopril has been held secondary to renal dysfunction. (3) Acute renal failure Assessment & Plan: He did have an acute increase in his creatinine overnight. Lasix has been discontinued and repeat labs are ordered for the morning. (4) Stage 4 chronic kidney disease Status: Chronic (5) DMII (diabetes mellitus, type 2) Assessment & Plan: He is on chronic treatment with NPH. We currently have him on sliding scale level #2. Exam Sepsis Risk: No Definite Risk RAMONITA BERNABE DO March 31, 2018 10:25
[2018-03-31] MEDS ORDERED: NS(*) 0.9% 500 ML BAG 500 ML IV ONE (15:25)
[2018-03-31] MEDS: TAMSULOSIN HCL 0.4 MG CAP PO SCH (20:24)
[2018-03-31] MEDS: PANTOPRAZOLE SOD 40 MG TABEC PO SCH (20:24)
[2018-03-31] MEDS: ATORVASTATIN 40 MG TAB PO SCH (20:24)
[2018-04-01 04:57] VITALS: BP 133/56
[2018-04-01 08:24] VITALS: BP 149/56
[2018-04-01] MEDS: INSULIN HUMAN REGULAR SLIDING SCALE SC PRN ×2 (08:37→13:39)
[2018-04-01] MEDS: ASPIRIN 81 MG ENTERIC COATED PO SCH (08:37)
[2018-04-01] MEDS: CLOPIDOGREL BISULFATE 75MG TAB PO SCH (08:37)
[2018-04-01] MEDS: METOPROLOL SUCC XL 50 MG TABCR 50 MG TAB.ER.24H PO SCH (08:37)
[2018-04-01] MEDS: ISOSORBIDE MONONITR 30MG TABCR PO SCH (08:37)
--- NOTE | 2018-04-01 12:31 | Hospitalist Depart ---
Discharge Summary Reason for Hosp/Final Diag: (1) Acute coronary syndrome Status: Acute Hospital Course & Plan: 03/29: is an 82-year-old male with PMH od HTN, DM-II, CKD:Stage-IV, Prostate Cancer, CAD s/p CABG and 4 stents with h/o CHF who presented to the emergency department via EMS for chest pain and shortness of breath. Patient states that about 10:00 today after returning from the bathroom he developed some shortness of breath, decided to sit down and eat a burrito continue to have some shortness of breath and then developed some anterior chest pain, became lightheaded, diaphoretic and had some nausea. He took one of his nitroglycerin at home, started to feel some relief. EMS was dispatched, upon arrival they did give him 1 more nitroglycerin in addition to 81 mg aspirin. Patient states he did feel much better after the nitroglycerin. Upon arrival the patient states that his shortness of breath and chest pain have basically resolved. He is no longer nauseous or diaphoretic. Patient denies headaches, rashes, vomiting, chills or recent illnesses. ER Course: "The patient was admitted to room. A history and physical were obtained. Differential diagnoses were considered. An IV started. A CBC, CMP, troponin, and BNP were obtained. CBC unremarkable. Chemistries showing BUN 31, creatinine 3.10 and he has AVF with good thrill, troponins negative 2 however the 2nd troponin did bump to .030, BNP 1350. Two-view chest x-ray showing blunting of both cosmetic angles, consistent with pleural thickening versus pleural effusions. Patchy airspace consolidation on the right and left lung bases could be an acute infectious process however, also be inflammatory process. The patient at this time is afebrile, normotensive and heart rate in the 60s so at this point an infectious process is unlikely. This is likely a congestive heart failure exacerbation. I did review these results with the patient and the family and did tell them that I would like to discuss this case with Dr. Verdugo the hospitalist and get his input on whether or not he feels that he could manage this as an inpatient or this is something he feels we should send to another facility. Dr. Verdugo I felt that he could manage the exacerbation inpatient and the patient will be admitted to the medical surgical unit. I did review this with the family and are in agreement with the plan of care. At the time of admission the patient is pain-free, no shortness of breath has no complaints at this time." On arrival to the floor, He was asymptomatic and hemodynamically stable without any cardiac issue. I discussed the case with the ER-MD and admitted for further evaluation and management. 03/30: His Troponin is 0.169 and EKG showed inferior leads, II and AVF with mild ST-T changes I discussed the case with [place] group of stamping press operator and recommended to continue the medical management, not a candidate for C.angiogram I will continue his ASA, ACEI, Beta Louis, Statin, Nitrates and plavix I already have started non thrombolytic heparin protocol for his possible inferior [place] Echo is pending 03/31 - We did stop the heparin infusion today. His troponin is trending down. The echocardiogram is pending. 04/01: Mr. Gutierrez experienced recent inferior wall STEMI with max Troponin 0.169. She received medical management including Heparin drip due to non stantable condition as discussed with [place] [facility]. Patient did well without any complications. He is currently on ACEI, Beta Louis, Plavix, ASA and he is hemodynamically stable. I will send BMP and BNP for Tuesday BMP and BNP will be followed by the stamping press operator on your visit on Tuesday for his renal function. His baseline creatinine was 3.0-3.5 with GFR 19. It went up to 4.0 with GFR 15ml/ min. His current Troponin is 0.07 His Echo in 2008 showed LVEF 45-5-% and after another cardiac event his cardiac perfusion scan showed LVEF 26% in 2009. His current LVEF on Echo is 37% during the STEMI He is afebrile and hemodynamically stanle without any c/o CP/dyspnea. He is being d/c'd home today and f/u with his PCP in 2 weeks and cardiology within 1 week on Tuesday if possible (2) Acute systolic (congestive) heart failure Status: Acute Hospital Course & Plan: He did have an elevated BNP and his echocardiogram showed an ejection fraction of 36%. He was started on Lasix, but this has now been stopped secondary to an increased creatinine. He is already on chronic treatment with lisinopril and metoprolol. The lisinopril has been held secondary to renal dysfunction. 04/01: He received IV Lasix 80mg bid and his creat went from 3.0 to 4.0 with GFR 19 to 15ml/min. He is off Lasix and will follow his creat. closely (3) Acute renal failure Status: Acute Hospital Course & Plan: He did have an acute increase in his creatinine overnight. Lasix has been discontinued and repeat labs are ordered for the morning. 04/01: His Creatinine went up from 3.0 with GFR 19ml/min to Creat. 4.0 with GFR 15ml/ min due to diuretics use. He is off Lasix 80mg IN bid and will follow his creat. closely as an out patient. (4) Stage 4 chronic kidney disease Status: Chronic Hospital Course & Plan: Baseline GFR 19ml/min and current GFR 15ml/min Will get BMP on Tuesday to check his renal function (5) DMII (diabetes mellitus, type 2) Status: Chronic Hospital Course & Plan: He is on chronic treatment with NPH. We currently have him on sliding scale level #2. stable Departure Weight (Pounds): 167 Result Diagram: 03/31/18 0755 04/01/18 0816 Condition: Improved (still improning his CXR and renal function) Discharge: Home, Self Care Time Spent: > 30 min Consults Cardiology([place] [facility]) on Tuesday Discharge Instructions Home Meds Reported Medications Leuprolide Acetate (ELIGARD) 45 Mg Disp.syrin, 45 MG SQ 03/29/18 Bicalutamide (BICALUTAMIDE) 50 Mg Tablet, 50 MG PO DAILY 03/29/18 Metoprolol Succinate (METOPROLOL SUCCINATE) 50 Mg Tab.er.24h, 1 TAB PO BID, TAB 03/29/18 Trazodone Hcl (TRAZODONE HCL) 150 Mg Tablet, 150 MG PO QHS 03/29/18 Ranitidine Hcl (ZANTAC) 150 Mg Tablet, 150 MG PO BID, TAB 03/29/18 Nitroglycerin (NITROGLYCERIN) 0.4 Mg Tab.subl, 0.4 MG SL Q5MIN 03/29/18 [lipoflavonoid] No Conflict Check, 1 TAB PO DAILY 10/14/16 Tamsulosin Hcl (TAMSULOSIN HCL) 0.4 Mg Cap.er.24h, 0.4 MG PO DAILY, CAP 10/14/16 [multivit] No Conflict Check, 1 TAB PO BID 10/14/16 Lisinopril (LISINOPRIL) 10 Mg Tablet, 0.5 MG PO QDAY, TAB 10/14/16 Isosorbide Mononitrate (ISOSORBIDE MONONITRATE ER) 30 Mg Tab.er.24h, 30 MG PO DAILY 10/14/16 Hum Insulin Nph/Reg Insulin Hm (NOVOLIN 70-30 100 UNIT/ML VIAL) 100 Unit/1 Ml Vial, 100 UNIT SQ, VIAL 30 units in the morning 20 units in the evening 10/14/16 Clopidogrel Bisulfate (CLOPIDOGREL) 75 Mg Tablet, 1 TAB PO QDAY, TAB 10/14/16 Atorvastatin (LIPITOR) 80 Mg Tab, 0.5 TAB PO QHS, TAB 10/14/16 Aspirin (ASPIR 81) 81 Mg Tablet.dr, 81 MG PO QDAY, TAB 10/14/16 Discontinued Reported Medications Pantoprazole Sodium (PANTOPRAZOLE SODIUM) 40 Mg Tablet.dr, 40 MG PO QDAY, TAB.SR 10/14/16 Metoprolol Tartrate (METOPROLOL TARTRATE) 50 Mg Tab, 1.5 TAB PO BID, TAB 10/14/16 Amlodipine Besylate (AMLODIPINE BESYLATE) 5 Mg Tablet, 1 TAB PO QDAY, TAB 10/14/16 Diet: Diabetic, Fluid Restricted, 2 Gram Sodium (NA), Low Cholesterol & Sat Fat Activity: As Tolerated Copies to: ANA AVILES MD Venous Thromboembolism Antithrombotics Is Pt On Any Antithrombotics?: No DALLAS VERDUGO MD April 01, 2018 12:31
== END 2018-04-01 14:35 | disposition home or self-care (01) | DRG 280 ==
LOC: ER 10:57 → MED 14:16
PROVIDERS: ADMIT Specialist; ATTEND Specialist
DX: I21.19 ST elevation (STEMI) myocardial infarction involving other coronary artery of inferior wall (principal); I50.23 Acute on chronic systolic (congestive) heart failure; I13.0 Hypertensive heart and chronic kidney disease with heart failure and stage 1 through stage 4 chronic kidney disease, or unspecified chronic kidney disease; N18.4 Chronic kidney disease, stage 4 (severe); N17.9 Acute kidney failure, unspecified; E11.22 Type 2 diabetes mellitus with diabetic chronic kidney disease; I25.10 Atherosclerotic heart disease of native coronary artery without angina pectoris; Z95.1 Presence of aortocoronary bypass graft; Z88.8 Allergy status to other drugs, medicaments and biological substances; Z79.4 Long term (current) use of insulin; I25.2 Old myocardial infarction; Z85.46 Personal history of malignant neoplasm of prostate; Z87.891 Personal history of nicotine dependence
CPT/HCPCS: 36415; 36416; 71045; 71046; 82040; 82247; 82310; 82374; 82435; 82465; 82565; 82947; 82948; 83718; 83880; 84075; 84132; 84155; 84295; 84443; 84450; 84460; 84478; 84484; 84520; 85025; 85520; 93005; 99284; C8929; J1644; J1940; J2405; J7040; Q9957

== ENCOUNTER → 2018-03-29 | Outpatient (CLI) | payer MEDICARE ==
[~2018-03-29] MED LIST: AMLO-96 PO; ASPI-1471 PO; ATR80PT PO; BICA50TA36 PO; CLOP75TA PO; FLU180SY9 IM; HUM100VI15 SQ; ISOS30TA54 PO; LEUP45SY3 SQ; LISI-362 PO; METO-253 PO; METO50TA19 PO; NITR0.4T3 SL; PANT40TA65 PO; RANI-366 PO; TAMS0.4C70 PO; TRAZ150T8 PO; lipoflavonoid PO; multivit PO
[2018-03-30 10:58] VITALS: BMI 26.6
== END ==
LOC: AMB 10:33
PROVIDERS: ATTEND Nurse Practitioner
DX: R07.9 Chest pain, unspecified (principal); R06.00 Dyspnea, unspecified; E10.9 Type 1 diabetes mellitus without complications; Z79.4 Long term (current) use of insulin; C61 Malignant neoplasm of prostate; I25.2 Old myocardial infarction
CPT/HCPCS: A0425; A0427

== ENCOUNTER 2018-03-31 07:09 | Outpatient (RCR) | payer MEDICARE ==
[2018-03-30 10:58] VITALS: BMI 26.6
[~2018-03-31 07:09] MED LIST changes: +BICA50TA36 PO; +LEUP45SY3 SQ; +METO50TA19 PO; +NITR0.4T3 SL; +RANI-366 PO; +TRAZ150T8 PO
--- NOTE | 2018-04-03 15:34 | Transitional Care Management ---
Assessment Visit Type: Telephone Visit (04/03 Misael) Cardiac: WNL Except Cardiac Comment: 04/03 Denies Cp but early this AM his BP was low at 78/36 Later in morning it was 160/54. [facility], O2 Sats and they are sending him a scale so that they can monitor that on their end also. . He will take his BP again this afternoon and document it. He is on Lisinopril and Metoprolol. I enc hime to call the [facility] if they don't call hiim if BP varies this again. and Particularly if it gets so low-they may need to make some medication changes. Respiratory Comment: 04/03 He doeswear O2 at HS but has been trying to not wear it so much in the day time so has been using the pulse ox to monitor. Told him to check at rest and if in mod-hi 90's he could take off for awhile. When up and moving around he may need to put it on-Try to keep 89-92% GI: Nutrition: WNL GI Comment: 04/03 maintaining Diabetic, low Na+ diet Weight Comment: 04/03 [facility] is going [facility] a [facility] this [facility] that [facility] the [facility] along w his other records. He tried to wt on his daughters scale and it was "way off" Constipation?: No Musculoskeletal, Exercise: WNL Except Musculoskeletal, Excercise Com: 04/03 [address] around appartment not going out at this time. Feeling of Well Being: WNL Feeling of Well Being Comment: 04/03 lives w and daughter lives upstairs. Scheduled Follow-Up with [facility]: Yes (04/03 with [facility]) Needed or Pending Tests: Yes (04/03 BMP and BNP) TCM Discharge Criteria Medication Knowledge: 04/03 We went over his medications. He uses a pill box and he and his go over them. We talked about the lISINIPRIL AND mETOPOROL which may cause the changes in his BP and if continues to be low t FU w [facility] Red/Yellow Flags: 04/03 Went over the reds/yellow flags of CHF and diabetes. He states his equip is interfaced w the [facility] and if things go wron they are to notify him. We wnt overLow/Hi bp and if they didn't call him in a resonable time he needed to follow up with them. Transitional Care Comment: 03/30 Pt and spouse interactive and attentive; want to review CHF, zones and lasix info with stan who is active in their healthcare. Pt is independent in home and managing multiple comorbidities. 04/03 tried calling several times today and this afternoon he called back in to our office. We went over the BP, O2 pirameters. Enc him to call us if he had questions. RYAN LARA April 03, 2018 15:34
--- NOTE | 2018-04-05 11:58 | Transitional Care Management ---
Assessment Visit Type: Telephone Visit Spoke with: Misael Cardiac: WNL Except Cardiac Comment: 04/03 Denies Cp but early this AM his BP was low at 78/36 Later in morning it was 160/54. [facility]2 Sats and they are sending him a scale so that they can monitor that on their end also. . He will take his BP again this afternoon and document it. He is on Lisinopril and Metoprolol. I enc hime to call the VA if they don't call hi if BP varies this again. and Particularly if it gets so low-they may need to make some medication changes. 04/05 His blood pressures have mostly been in the 100/40 range. He is waiting for the [facility] to let him know when his cardiology appointment will be. He has been in contact with the [facility] about his blood pressure, no changes to his regimen have been made. Respiratory Comment: 04/03 He doeswear O2 at HS but has been trying to not wear it so much in the day time so has been using the pulse ox to monitor. Told him to check at rest and if in mod-hi 90's he could take off for awhile. When up and moving around he may need to put it on-Try to keep 89-92% 04/05 He is checking O2 sats, and wearing O2 as needed. GI: Nutrition: WNL GI Comment: 04/03 maintaining Diabetic, low Na+ diet Weight Comment: 04/03 [facility] is going to send him a scale this week that interfaces with the [facility] along w his other records. He tried to wt on his daughters scale and it was "way off" 04/05 VA scale should arrive today. Constipation?: No : WNL Except Comment: 04/05 Stage 4 chronic kidney disease. Musculoskeletal, Exercise: WNL Except Musculoskeletal, Excercise Com: 04/03 walking around appartment not going out at this time. Mobility/Falls: WNL Integumentary: WNL Feeling of Well Being: WNL Feeling of Well Being Comment: 04/03 lives w and daughter lives upstairs. Socialization: WNL Pain/Management: WNL Scheduled Follow-Up with Provi: Yes (04/03 with [facility] to be scheduled) Needed or Pending Tests: Yes (04/03 BMP and BNP) Following Discharge Instructio: Yes TCM Discharge Criteria Medication Knowledge: 04/03 We went over his medications. He uses a pill box and he and his go over them. We talked about the lISINIPRIL AND mETOPOROL which may cause the changes in his BP and if continues to be low t KECIA w VA Red/Yellow Flags: 04/03 Went over the reds/yellow flags of CHF and diabetes. He states his equip is interfaced w the [facility] and if things go wron they are to notify him. We wnt overLow/Hi bp and if they didn't call him in a resonable time he needed to follow up with them. Transitional Care Comment: 03/30 Pt and spouse interactive and attentive; want to review CHF, zones and lasix info with stan who is active in their healthcare. Pt is independent in home and managing multiple comorbidities. 04/03 tried calling several times today and this afternoon he called back in to our office. We went over the BP, O2 pirameters. Enc him to call us if he had questions. 04/05 He has contacted the [facility] about follow up appointments and his blood pressure, and is awaiting a return call. VA scale should be delivered today. MILTON CHAVEZ April 05, 2018 11:58
--- NOTE | 2018-04-11 11:21 | Transitional Care Management ---
Assessment Cardiac: WNL Except Cardiac Comment: 04/03 Denies Cp but early this AM his BP was low at 78/36 Later in morning it was 160/54. He is [facility] to the [facility] with his BP, O2 Sats and they are sending him a scale so that they can monitor that on their end also. . He will take his BP again this afternoon and document it. He is on Lisinopril and Metoprolol. I enc hime to call the [facility] if they don't call [facility] if BP varies this again. and Particularly if it gets so low-they may need to make some medication changes. 04/05 His blood pressures have mostly been in the 100/40 range. He is waiting for the [facility] to let him know when his cardiology appointment will be. He has been in contact with the [facility] about his blood pressure, no changes to his regimen have been made. Respiratory Comment: 04/03 He doeswear O2 at HS but has been trying to not wear it so much in the day time so has been using the pulse ox to monitor. Told him to check at rest and if in mod-hi 90's he could take off for awhile. When up and moving around he may need to put it on-Try to keep 89-92% 04/05 He is checking O2 sats, and wearing O2 as needed. GI: Nutrition: WNL GI Comment: 04/03 maintaining Diabetic, low Na+ diet Weight Comment: 04/03 [facility] is going to send him a scale this week that interfaces with the [facility] along w his other records. He tried to wt on his daughters scale and it was "way off" 04/05 VA scale should arrive today. Constipation?: No : WNL Except Comment: 04/05 Stage 4 chronic kidney disease. Musculoskeletal, Exercise: WNL Except Musculoskeletal, Excercise Com: 04/03 walking around appartment not going out at this time. Mobility/Falls: WNL Integumentary: WNL Feeling of Well Being: WNL Feeling of Well Being Comment: 04/03 lives w and daughter lives upstairs. Socialization: WNL Pain/Management: WNL Scheduled Follow-Up with Provi: Yes Needed or Pending Tests: Yes (04/03 BMP and BNP) Following Discharge Instructio: Yes TCM Discharge Criteria Medication Knowledge: 04/03 We went over his medications. He uses a pill box and he and his go over them. We talked about the lISINIPRIL AND mETOPOROL which may cause the changes in his BP and if continues to be low t KECIA w [facility] Red/Yellow Flags: 04/03 Went over the reds/yellow flags of CHF and diabetes. He states his equip is interfaced w the [facility] and if things go wron they are to notify him. We wnt overLow/Hi bp and if they didn't call him in a resonable time he needed to follow up with them. Transitional Care Comment: 03/30 Pt and spouse interactive and attentive; want to review CHF, zones and lasix info with stan who is active in their healthcare. Pt is independent in home and managing multiple comorbidities. 04/03 tried calling several times today and this afternoon he called back in to our office. We went over the BP, O2 pirameters. Enc him to call us if he had questions. 04/05 He has contacted the [facility] about follow up appointments and his blood pressure, and is awaiting a return call. VA scale should be delivered today. 04/11 called; left message SUNDEEP FIERRO April 11, 2018 11:21
--- NOTE | 2018-04-14 11:55 | Transitional Care Management ---
Assessment Visit Type: Telephone Visit (04/14 [place]) Cardiac: WNL Except Cardiac Comment: 04/03 Denies Cp but early this AM his BP was low at 78/36 Later in morning it was 160/54. He is connected to the [place] with his BP, O2 Sats and they are sending him a scale so that they can monitor that on their end also. . He will take his BP again this afternoon and document it. He is on Lisinopril and Metoprolol. I enc hime to call the VA if they don't call hiim if BP varies this again. and Particularly if it gets so low-they may need to make some medication changes. 04/05 His blood pressures have mostly been in the 100/40 range. He is waiting for the [facility] to let him know when his cardiology appointment will be. He has been in contact with the [place] about his blood pressure, no changes to his regimen have been made. 04/14 Pt is connected to [place] [facility] and they monitor hi every 2nd day. His BP continued to run low and the [facility] Dr Held the isoprobide and his kidney Dr in [place] agreed and totally stopped it. They will continue to monitor him closely. Respiratory Comment: 04/03 He doeswear O2 at HS but has been trying to not wear it so much in the day time so has been using the pulse ox to monitor. Told him to check at rest and if in mod-hi 90's he could take off for awhile. When up and moving around he may need to put it on-Try to keep 89-92% 04/05 He is checking O2 sats, and wearing O2 as needed. GI: Nutrition: WNL GI Comment: 04/03 maintaining Diabetic, low Na+ diet 04/14 remains on a Na+,diabetic diet. BS staying stable. [facility] Dr very pleased with them. Weight Comment: 04/03 [place] is going to send him a scale this week that interfaces with the [facility] along w his other records. He tried to wt on his daughters scale and it was "way off" 04/05 [facility] scale should arrive today. 04/14 wt q day. stays arund 161. Scale very accurate Constipation?: No : WNL Except Comment: 04/05 Stage 4 chronic kidney disease. Musculoskeletal, Exercise: WNL Except Musculoskeletal, Excercise Com: 04/03 walking around apartment not going out at this time. Mobility/Falls: WNL Integumentary: WNL Feeling of Well Being: WNL Feeling of Well Being Comment: 04/03 lives w and daughter lives upstairs. Socialization: WNL Pain/Management: WNL Scheduled Follow-Up with Provi: Yes Needed or Pending Tests: Yes (04/03 BMP and BNP) Following Discharge Instructio: Yes TCM Discharge Criteria Medication Knowledge: 04/03 We went over his medications. He uses a pill box and he and his go over them. We talked about the lISINIPRIL AND mETOPOROL which may cause the changes in his BP and if continues to be low t FU w [facility] Red/Yellow Flags: 04/03 Went over the reds/yellow flags of CHF and diabetes. He states his equip is interfaced w the [facility] and if things go wron they are to notify him. We wnt overLow/Hi bp and if they didn't call him in a resonable time he needed to follow up with them. 04/14 went over Red and yellow flags of CHF, Diabetes. Transitional Care Comment: 03/30 Pt and spouse interactive and attentive; want to review CHF, zones and lasix info with stan who is active in their healthcare. Pt is independent in home and managing multiple comorbidities. 04/03 tried calling several times today and this afternoon he called back in to our office. We went over the BP, O2 pirameters. Enc him to call us if he had questions. 04/05 He has contacted the [facility] about follow up appointments and his blood pressure, and is awaiting a return call. VA scale should be delivered today. 04/11 called; left message 04/14 Pt states he feels he is doing quite well. He is constant contact with the [facility] through [facility] [employer] and he sends his PB,BS, sts and O@ sats to them q 2nd day. He feels his condition is being being followed very through through the V and probably didn't need us to follow him at this time. DC'd him from the program. Enc him to call us if he had any further questions. RYAN LARA April 14, 2018 11:55
== END 2018-04-18 07:13 | disposition home or self-care (01) ==
LOC: TCM 07:09
PROVIDERS: ATTEND Nurse Practitioner
DX: Z02.9 Encounter for administrative examinations, unspecified (principal)

== ENCOUNTER 2018-05-04 18:02 | Inpatient (IN) | payer MEDICARE ==
[2018-05-04] VITALS (7 sets, daily range): BP systolic 123–148; BP diastolic 55–78
[~2018-05-04] VITALS: Ht 170.2 cm; Wt 73.5 kg
[~2018-05-04 18:02] MED LIST changes: -ATOR40TA69 PO; -BIOF1TAB PO; -CHOL10005 PO; -FURO80TA10 PO; -KETO5DRO50 OP; -METO25TA93 PO; -RANI150C17 PO; -SODI325T7 PO
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
[2018-05-04] MEDS ORDERED: EMS NS 0.9%(*) 1000 ML BAG 1,000 ML IV ONE (18:15)
[2018-05-04] MEDS ORDERED: ONDANSETRON 4 MG/2 ML VIAL IVP ONE (18:20)
[2018-05-04 18:26] LABS: PLATELET COUNT, AUTOMATED 211 K/uL (150-450)
[2018-05-04] MEDS ORDERED: ATOR40TA69 PO (18:52)
[2018-05-04] MEDS ORDERED: KETO5DRO50 OP (18:52)
[2018-05-04] MEDS ORDERED: RANI150C17 PO (18:52)
--- NOTE | 2018-05-04 18:54 | EKG ---
[place] [facility] [place] SKY GRANDE : [id number] MR: [id number] V: [id number] EXAM DATE: ORDERING PHYSICIAN: RASTA OSBORN TECHNOLOGIST: SOY Test Reason : Blood Pressure : / mmHG Vent. Rate : 081 BPM Atrial Rate : 081 BPM P-R Int : 160 ms QRS Dur : 114 ms QT Int : 402 ms P-R-T Axes : 000 -06 145 degrees QTc Int : 466 ms Normal sinus rhythm Septal infarct , age undetermined Inferior infarct (cited on or before 29-MAR-2018) ST and T wave abnormality, consider lateral ischemia Abnormal ECG When compared with ECG of 30-MAR-2018 09:53, ST now depressed in Lateral leads Confirmed by DHEERAJ UP ([id number]) on 05/04/2018 8:12:23 PM Referred By: Confirmed By:DHEERAJ UP
[2018-05-04] MEDS ORDERED: NITROGLYCERIN OINT 1 GM PKT TP ONE ×2 (20:10→20:40)
[2018-05-04] MEDS ORDERED: KETOROLAC TROM 0.5% OP 3 ML BTL OD PRN (20:10)
[2018-05-04] MEDS ORDERED: INFLUENZA VIRUS VAC 0.5 ML SYR IM ONLY ONE (20:10)
[2018-05-04] MEDS ORDERED: FUROSEMIDE 40 MG/4 ML VIAL IVP ONE (20:10)
--- NOTE | 2018-05-04 20:27 | RADIOLOGY IMAGING REPORT ---
[place] [facility] [place] Misael Gil : 1935 MR: [id number] V: [id number] EXAM DATE: ORDERING PHYSICIAN: RASTA OSBORN TECHNOLOGIST: [place] [facility] [place]: Misael Gil : 1935 Visit/Account:[id number] Date of Sevice: 05/04/2018 Examination: CHEST SINGLE AP Comparison: 03/30/2018 History: Chest Pain Findings: Cardiac silhouette is enlarged and increased in the interval. Additionally, there is diffus e increased indistinctness of the bronchovascular markings as well as small but increased bilateral p leural effusions. No pneumothorax. Left-sided calcified pleural plaques as before. Sternotomy wires a re midline. Osseous structures are intact. IMPRESSION: The radiographic findings are most suggestive of congestive failure although pneumonia is a possibili ty as well. Report Dictated By: Reagan Craig MD at 05/04/2018 8:22 PM Report E-Signed By: Reagan Craig MD at 05/04/2018 8:23 PM [id number]
--- NOTE | 2018-05-04 20:53 | History & Physical ---
History of Present Illness History of Present Illness 82yo male with a h/o CKD, CAD and HFrEF who came to the ER for CP and HERNÁNDEZ. He was in the hospital about a month ago for CHF exacerbation and NSTEMI. Since then, he has been more limited with exertion. Last night, he was very sleepy from a lot daytime activities, so went to bed around 6pm, which is unusual for him. He awoke and felt like he had to sit up, which helped relieve some vague discomfort. He then went to his recliner. He noted mild chest pain about 0400 that has persisted all day. He had HERNÁNDEZ all day, which was worse than his baseline. He denies LE edema, abdominal distention or weight gain. His CAD is so severe that numerous Cardiologists and a Cardiovascular surgeon have told him that no interventions can be done. He has had a CABG and stents placed previously. History Problems: (1) Prostate cancer Status: Chronic (2) CAD (coronary artery disease) (3) HFrEF (heart failure with reduced ejection fraction) (4) Stage 4 chronic kidney disease Status: Chronic (5) DMII (diabetes mellitus, type 2) Status: Chronic Home Meds Reported Medications Ranitidine Hcl (RANITIDINE HCL) 150 Mg Capsule, 150 MG PO BID, CAPSULE 05/04/18 Ketorolac Tromethamine (ACULAR) 5 Ml Drops, 1 DROP OP QID Y for R Eye 05/04/18 Atorvastatin Calcium (ATORVASTATIN CALCIUM) 40 Mg Tablet, 0.5 TAB PO HS, TAB 05/04/18 Leuprolide Acetate (ELIGARD) 45 Mg Disp.syrin, 45 MG SQ 03/29/18 Bicalutamide (BICALUTAMIDE) 50 Mg Tablet, 50 MG PO HS 03/29/18 Trazodone Hcl (TRAZODONE HCL) 150 Mg Tablet, 150 MG PO QHS 03/29/18 Nitroglycerin (NITROGLYCERIN) 0.4 Mg Tab.subl, 0.4 MG SL Q5MIN 03/29/18 Tamsulosin Hcl (TAMSULOSIN HCL) 0.4 Mg Cap.er.24h, 0.4 MG PO HS, CAP 10/14/16 Lisinopril (LISINOPRIL) 10 Mg Tablet, 5 MG PO HS, TAB 10/14/16 Isosorbide Mononitrate (ISOSORBIDE MONONITRATE ER) 30 Mg Tab.er.24h, 30 MG PO DAILY 10/14/16 Hum Insulin Nph/Reg Insulin Hm (NOVOLIN 70-30 100 UNIT/ML VIAL) 100 Unit/1 Ml Vial, 100 UNIT SQ, VIAL 22 units in the morning 5 units in the evening 10/14/16 Clopidogrel Bisulfate (CLOPIDOGREL) 75 Mg Tablet, 1 TAB PO QDAY, TAB 10/14/16 Aspirin (ASPIR 81) 81 Mg Tablet.dr, 81 MG PO QDAY, TAB 10/14/16 Discontinued Reported Medications Metoprolol Succinate (METOPROLOL SUCCINATE) 50 Mg Tab.er.24h, 1 TAB PO BID, TAB 03/29/18 Ranitidine Hcl (ZANTAC) 150 Mg Tablet, 150 MG PO BID, TAB 03/29/18 [lipoflavonoid] No Conflict Check, 1 TAB PO DAILY 10/14/16 [multivit] No Conflict Check, 1 TAB PO BID 10/14/16 Atorvastatin (LIPITOR) 80 Mg Tab, 0.5 TAB PO QHS, TAB 10/14/16 Allergies: Coded Allergies: codeine (Verified Allergy, Mild, DIZZY, 05/04/18) Patient History: FH: diabetes mellitus BROTHER OR SISTER FH: heart attack FATHER MOTHER BROTHER OR SISTER BROTHER OR SISTER BROTHER OR SISTER BROTHER OR SISTER Hx Smoking: Yes (quit 50 yrs ago) Smoking Status: Former Smoker Hx Alcohol Use: No Hx Substance Use Disorder: No Review of Systems All Systems Reviewed/Normal: Yes, Except as Noted Exam Vital Signs Vital Signs Date Time Temp Pulse Resp B/P (MAP) Pulse Ox O2 Delivery O2 Flow Rate FiO2 05/04/18 18:52 71 05/04/18 18:47 23 146/64 (91) 96 05/04/18 18:06 1.0 05/04/18 18:06 98.5 Nasal Cannula General Appearance: Alert, Awake, No Acute Distress (Pale, appears tired. Breathing comfortably) Neuro: No Gross deficits Eyes: Other (Right pupil irregular shape. Left is round and reactive) Cardiovascular: Regular Rate and Rhythm (2/6 sys murmur across precordium), No JVD GI: Abd Soft and Non-Tender : No CVA Tenderness Extremities: Edema (trace to 1+ pitting above socks) Integumentary: No Jaundice, No Cyanosis Medical Decision Making Data Points Result Diagram: 05/04/18 1800 05/04/18 1800 Item Value Date Time B-Type Natriuretic Peptide 3210 pg/ml H 05/04/18 1800 Troponin I 0.167 ng/ml *H 05/04/18 1800 Aspartate Amino Transf (AST/SGOT) 22 U/L 05/04/18 1800 Alanine Aminotransferase (ALT/SGPT) 20 U/L 05/04/18 1800 Alkaline Phosphatase 90 U/L 05/04/18 1800 Total Bilirubin 0.5 mg/dl 05/04/18 1800 Creatinine 3.30 mg/dl H 05/04/18 1800 Blood Urea Nitrogen 44 mg/dl H 05/04/18 1800 Neutrophils (%) (Auto) 74.7 % H 05/04/18 1800 Lymphocytes (%) (Auto) 12.4 % L 05/04/18 1800 Monocytes (%) (Auto) 11.9 % 05/04/18 1800 Eosinophils (%) (Auto) 0.7 % 05/04/18 1800 Basophils (%) (Auto) 0.3 % 05/04/18 1800 Nucleated RBC Relative Count (auto) 0.0 /100WBC 05/04/18 1800 Neutrophils # (Auto) 6.9 K/uL 05/04/18 1800 D-Dimer Quantitative (PE/DVT) 0.87 ug/ml H 05/04/18 1800 EKG / Imaging EKG Interpretation Vent. Rate : 081 BPM Atrial Rate : 081 BPM P-R Int : 160 ms QRS Dur : 114 ms QT Int : 402 ms P-R-T Axes : 000 -06 145 degrees QTc Int : 466 ms Normal sinus rhythm Septal infarct , age undetermined Inferior infarct (cited on or before 29-MAR-2018) ST and T wave abnormality, consider lateral ischemia Abnormal ECG When compared with ECG of 30-MAR-2018 09:53, ST now depressed in Lateral leads Confirmed by DHEERAJ UP ([id number]) on 05/04/2018 8:12:23 PM Imaging CXR - The radiographic findings are most suggestive of congestive failure although pneumonia is a possibility as well. Assessment and Plan Problems: (1) Acute systolic (congestive) heart failure Status: Acute Assessment & Plan: He presented with about 12 hours of worsening HERNÁNDEZ and orthopnea. His weight is unchanged. His last echo on 03/30/18 showed and EF of 30-35%. Will give a dose of Lasix 80mg IV and reassess symptoms and labs tomorrow. He will be on the heart failure diet and get daily wts. (2) NSTEMI (non-ST elevated myocardial infarction) Status: Acute Assessment & Plan: He presented with mild chest pain that has been persistent for about [address] depression in the lateral leads. Likely, secondary to strain from heart failure exacerbation. He is not a candidate for any further stents or by-pass grafting, per his Ccnp and Cardiovascular surgeon. He and his family expressed understanding that he is only able to get medical management here and there is no Ccnp. NTG paste will be placed (with close observation because of chronic isosorbide use), and he will be started on Lovenox renal and age dosing. ASA, Plavix, Metoprolol and Lipitor will be continued. He requests to be a full code. Will follow troponin. (3) DMII (diabetes mellitus, type 2) Status: Chronic Assessment & Plan: He is chronically on 70/30, but will hold for now. Will check glucose AC and HS and cover with SSI level 2. (4) Prostate cancer Status: Chronic Assessment & Plan: Continue Casodex. He also gets q6 month Lupron shots. The next is in a couple of weeks. (5) Stage 4 chronic kidney disease Status: Chronic Assessment & Plan: Baseline creatinine is 3-3.3. He had a fistula recently placed for preparation for dialysis. Copies to: [facility] Venous Thromboembolism Antithrombotics Is Pt On Any Antithrombotics?: No Exam Sepsis Risk: No Definite Risk DHEERAJ UP MD May 04, 2018 20:53
[2018-05-04] MEDS ORDERED: ENOXAPARIN 100 MG/ML SYR SC SCH (21:00)
[2018-05-04] MEDS: METOPROLOL SUCC XL 50 MG TABCR 50 MG TAB.ER.24H PO SCH (21:12)
[2018-05-04] MEDS: RANITIDINE HCL 150 MG TAB PO SCH (21:12)
[2018-05-04] MEDS: traZODone HCL 50 MG TAB PO SCH (21:14)
[2018-05-04] MEDS: ATORVASTATIN 40 MG TAB PO SCH (21:15)
[2018-05-04] MEDS: BICALUTAMIDE 50 MG TAB PO SCH (21:15)
[2018-05-04] MEDS: TAMSULOSIN HCL 0.4 MG CAP PO SCH (21:15)
[2018-05-05] VITALS (9 sets, daily range): BP systolic 107–133; BP diastolic 47–57; Ht 170.2 cm; Wt 73.5 kg
[2018-05-05] MEDS ORDERED: BIOF1TAB PO (02:16)
[2018-05-05] MEDS ORDERED: METO25TA93 PO (02:16)
[2018-05-05] MEDS ORDERED: CHOL10005 PO (02:18)
[2018-05-05] MEDS ORDERED: SODI325T7 PO (02:18)
[2018-05-05 06:06] LABS: PLATELET COUNT, AUTOMATED 163 K/uL (150-450)
[2018-05-05] MEDS: INSULIN HUM LISPRO 100 UN/ML 3 ML VIAL SUBQ PRN ×3 (07:50→22:04)
[2018-05-05] MEDS ORDERED: FUROSEMIDE 40 MG/4 ML VIAL IVP SCH (10:00)
[2018-05-05] MEDS: ISOSORBIDE MONONITR 30MG TABCR PO SCH (11:32)
[2018-05-05] MEDS: CLOPIDOGREL BISULFATE 75MG TAB PO SCH (11:33)
[2018-05-05] MEDS: RANITIDINE HCL 150 MG TAB PO SCH ×2 (11:33→21:41)
[2018-05-05] MEDS: METOPROLOL SUCC XL 50 MG TABCR 50 MG TAB.ER.24H PO SCH ×3 (11:33→21:45)
[2018-05-05] MEDS: ASPIRIN 81 MG ENTERIC COATED PO SCH (11:33)
[2018-05-05] MEDS: HEPARIN* SOD/D5W 25000 U/500ML 500 ML IV SCH (13:07)
[2018-05-05] MEDS ORDERED: FUROSEMIDE 40 MG/4 ML VIAL IVP ONE (14:55)
--- NOTE | 2018-05-05 15:59 | Hospitalist Progress Note ---
Subjective Progress Notes Subjective Mr. Gutierrez is an 82yo male with PMH of DM-II, CKD-IV, CAD s/p CABG and stents , CHF with low LVEF 35%, Prostate Cancer who came to the ER for CP and HERNÁNDEZ with new ST depression in the lateral leads. He was in the hospital about a month ago for CHF exacerbation and NSTEMI. Since then, he has been more limited with exertion. His CAD is so severe that numerous Cardiologists and a Cardiovascular surgeon have told him that no interventions can be done. He and his family expressed understanding that he is only able to get medical management here. He requests to be a full code. During the ER evaluation he found to have congestive pattern on his CXR with BNP >3000, His troponin was 1.65 with Lateral wall ischemia on his EKG with old septal and inferior wall AL. He was admitted and was started on Lasix 80mg IV bid, Lovenox 75mg qd, ASA, Imdur, ASA, Plavix, Metoprolol and Lipitor. 05/05: Today patient is feeling better . He is afebrile and hemodynamically stable without chest pain and dyspnea. Patient Complains of: Neurological: No: Confusion, Weakness, Dizziness Cardiovascular: Other, No: Chest Pain, Palpitations Respiratory: No: Cough, Congestion, Shortness of Breath Gastrointestinal: No Nausea, No Vomiting Genitourinary: Other (polyuria), No Dysuria, No Hematuria Musculoskeletal: No: Pain, Sprain, Strain Physical Exam Vital Signs Date Time Temp Pulse Resp B/P (MAP) Pulse Ox O2 Delivery O2 Flow Rate FiO2 05/05/18 11:15 98.1 66 133/57 (82) 96 Nasal Cannula 1.0 05/05/18 07:50 28 Intake and Output 05/06/18 07:00 Intake Total 560 ml Output Total 250 ml Balance 310 ml Intake Oral 560 ml Output Urine Total 250 ml # Voids 1 General Appearance: Alert, Awake, No Acute Distress, Afebrile Neuro: No Gross deficits Eyes: PERRLA ENT: Normal Neck: No Masses Cardiovascular: Normal Rhythm & Peripheral Pulses, No Edema, No JVD Respiratory: No Respiratory Distress, Other (few basilar rales) GI: Soft and Non-Tender Musculoskeletal: No Weakness/Pain Extremities: Soft and Non Tender, Warm, Pulses Integumentary: Skin Intact without Lesion / Mass Psych: Alert & Oriented X3, Appropriate Mood & Affect Result Diagram: 05/05/18 0524 05/05/18 0524 Assessment and Plan Problems: (1) Acute systolic (congestive) heart failure Status: Acute Assessment & Plan: 05/04: He presented with about 12 hours of worsening HERNÁNDEZ and orthopnea. His weight is unchanged. His last echo on 03/30/18 showed and EF of 30-35%. Will give a dose of Lasix 80mg IV and reassess symptoms and labs tomorrow. He will be on the heart failure diet and get daily wts. 05/05: I will stop Lovenox and start Heparin drip I will increase his Lasix 80mg IV q 12h I will continue his current management I will get BMP, BNP, Troponin in am I will get CXR in am (2) NSTEMI (non-ST elevated myocardial infarction) Status: Acute Assessment & Plan: 05/04: He presented with mild chest pain that has been persistent for about [address] depression in the lateral leads. Likely, secondary to strain from heart failure exacerbation. He is not a candidate for any further stents or by- pass grafting, per his Synthetic Staple Extruder and Cardiovascular surgeon. He and his family expressed understanding that he is only able to get medical management here and there is no Synthetic Staple Extruder. NTG paste will be placed (with close observation because of chronic isosorbide use), and he will be started on Lovenox renal and age dosing. ASA, Plavix, Metoprolol and Lipitor will be continued. He requests to be a full code. Will follow troponin. 05/05: II will stop Lovenox and start Heparin drip I will increase his Lasix 80mg IV q 12h I will continue his current management I will get BMP, BNP, Troponin in am I will get CXR in am (3) DMII (diabetes mellitus, type 2) Status: Chronic Assessment & Plan: He is chronically on 70/30, but will hold for now. Will check glucose AC and HS and cover with SSI level 2. (4) Prostate cancer Status: Chronic Assessment & Plan: Continue Casodex. He also gets q6 month Lupron shots. The next is in a couple of weeks. (5) Stage 4 chronic kidney disease Status: Chronic Assessment & Plan: Baseline creatinine is 3-3.3. He had a fistula recently placed for preparation for dialysis. 6/15: His kidney function is stable I will get BMP in am Time Spent on Plan of Care: > 30 min Copies to: KURTIS BERNARDO MD Exam Sepsis Risk: No Definite Risk DALLAS HERNANDES MD May 05, 2018 15:59
[2018-05-05] MEDS: TAMSULOSIN HCL 0.4 MG CAP PO SCH (21:41)
[2018-05-05] MEDS: ATORVASTATIN 40 MG TAB PO SCH (21:41)
[2018-05-05] MEDS: BICALUTAMIDE 50 MG TAB PO SCH (21:41)
[2018-05-05] MEDS: traZODone HCL 50 MG TAB PO SCH (21:45)
[2018-05-06] VITALS (8 sets, daily range): BP systolic 101–135; BP diastolic 48–65
--- NOTE | 2018-05-06 06:00 | RADIOLOGY IMAGING REPORT ---
FACILITY: [facility] - [place] PATIENT NAME: Misael Gil : 1935 MR: [id number] V: [id number] EXAM DATE: ORDERING PHYSICIAN: DALLAS HERNANDES TECHNOLOGIST: [place] [facility] [place] Misael Gil : 1935 Visit/Account:[id number] Date of Sevice: 05/06/2018 PORTABLE CHEST: Indication: Myocardial infarction. Technique: A single frontal film was obtained. Comparison: 05/04/2018 Skeletal and soft tissue structures: Intact and unremarkable. Heart and mediastinum: Stable. Lung adames: Vascular congestion and pulmonary edema have improved. Pleural spaces: A small left effusion persists. The right effusion has improved. Impression: Interval improvement of the vascular congestion and pleural effusions. Report Dictated By: Sergo Cheek MD at 05/06/2018 5:55 AM Report E-Signed By: Sergo Cheek MD at 05/06/2018 5:57 AM WSN:[id number]
[2018-05-06] MEDS: ASPIRIN 81 MG ENTERIC COATED PO SCH (08:41)
[2018-05-06] MEDS: FUROSEMIDE 40 MG/4 ML VIAL IVP SCH ×2 (08:41→14:35)
[2018-05-06] MEDS: METOPROLOL SUCC XL 50 MG TABCR 50 MG TAB.ER.24H PO SCH ×2 (08:41→21:38)
[2018-05-06] MEDS: CLOPIDOGREL BISULFATE 75MG TAB PO SCH (08:41)
[2018-05-06] MEDS: ISOSORBIDE MONONITR 30MG TABCR PO SCH (08:41)
[2018-05-06] MEDS: RANITIDINE HCL 150 MG TAB PO SCH ×2 (08:41→21:38)
--- NOTE | 2018-05-06 12:23 | Medical Nutrition Therapy ---
Nutrition Anthropometrics Height (Inches): 67.00 Height (Calculated Centimeters: 170.851531 Weight (Pounds): 162 Weight (Calculated Kilograms): 73.737 Joe Nutrition Score: Adequate Joe Nutrition Risk Score: 20 Dietary Referral Nutrition Risk Factors: Nutrition Risk Comment: Physical Findings Physical Appearance: Overweight BMI 25-29 Skin Appearance Skin Appearance: Edema Edema Location Modifier: Both Edema Location: Lower Extremity Type of Edema: Degree of Edema: Gastrointestinal Symptoms GI Symtoms: Tube Present: Bowel Sounds: Recent Bowel Pattern: Stool Characteristics: Nutrition/Food History No Significant Nutr. HX Nutritional Diagnosis Nutritional Risk Acuity 2: CHF w/Complication, Chronic Renal Failure Nutritional Risk Acuity 3: Cancer Past Medical History: Orthostatic hypotension, autonomic dysreflexia, prostate cancer, CHF exacerbation, T2DM, Stage IV CKD, acute coronary syndrome Nutritional Acuity: 2-Moderate Nutrition Diagnosis: Decreased Nutrient Needs Nutrition Etiology: Physiological Causes Nutrition Problem/Etiology/Sym: Decreased Nutrient Needs related to diagnosis of CKD and heart failure AEB high BUN, creatinine and BNP of 1760. Energy Requirement: 1960 ([place]-St Jeor: Actual BW X 1.4) Protein Requirement: 74 Diet Type: CHF Diet Nutrition Intervention: Cont diet as ordered Drug: Diuretics Food Dislikes: Pt follows lowK+ at home- limited potatoes, tomatoe, orange, banana- BK Nutrition Monitoring & Eval Nutrition Goals: Eat 75-100% Meal RD Patient Assessment Time: [address] Assessment Type: RD Assessment Patient Nutrition Acuity: 2-Moderate Follow Up Date: May 09, 2018 Nutritional Comment: 05/05 Pt admitted for DE with CHF. Troponin elevated. Alb 2.9, K+ 4.3, BUN 43, creatinine 3.2, BG ranging 131-143. Pt has hx of stage 4 CKD. Pt has dx T2DM and is recieving insulin. Pt is on CHF diet but no intake reported at this time. Pt has nopitting edema LE. Cont to monitor and encourage intake. BK 05/06 Low H/H, BNP 1760, Low Ca+, High BUN/Creat, Glu 120. Overwt with BMI of 25.5. Pt consuming 60-100% of CHF diet. Follow intake, labs, and encourage intake. -MADI MITCHELL May 06, 2018 12:23
[2018-05-06] MEDS: INSULIN HUM LISPRO 100 UN/ML 3 ML VIAL SUBQ PRN ×3 (12:26→21:48)
--- NOTE | 2018-05-06 12:59 | Hospitalist Progress Note ---
Subjective Progress Notes Subjective Mr. Gutierrez is an 82yo male with PMH of DM-II, CKD-IV, CAD s/p CABG and stents , CHF with low LVEF 35%, Prostate Cancer who came to the ER for CP and HERNÁNDEZ with new ST depression in the lateral leads. He was in the hospital about a month ago for CHF exacerbation and NSTEMI. Since then, he has been more limited with exertion. His CAD is so severe that numerous Cardiologists and a Cardiovascular surgeon have told him that no interventions can be done. He and his family expressed understanding that he is only able to get medical management here. He requests to be a full code. During the ER evaluation he found to have congestive pattern on his CXR with BNP >3000, His troponin was 1.65 with Lateral wall ischemia on his EKG with old septal and inferior wall VT. He was admitted and was started on Lasix 80mg IV bid, Lovenox 75mg qd, ASA, Imdur, ASA, Plavix, Metoprolol and Lipitor. 05/05: Today patient is feeling better . He is afebrile and hemodynamically stable without chest pain and dyspnea. 05/06: Today patient is doind better. He is afebrile and hemodynamically stable. He denies any CP or SOB. His weight has decreased from 175Lbs to 162Lbs with Diuretics. His BNP down to 1760 and his GFR is 16ml/min Patient Complains of: Neurological: No: Confusion, Weakness, Dizziness Cardiovascular: No: Chest Pain, Palpitations Respiratory: No: Cough, Congestion, Shortness of Breath Gastrointestinal: No Nausea, No Vomiting Genitourinary: No Dysuria, No Hematuria Musculoskeletal: No: Pain, Sprain, Strain Physical Exam Vital Signs Date Time Temp Pulse Resp B/P (MAP) Pulse Ox O2 Delivery O2 Flow Rate FiO2 05/06/18 11:17 94 Nasal Cannula 1.0 05/06/18 10:38 97.5 70 22 118/53 (74) Intake and Output 05/07/18 07:00 Intake Total 585 ml Output Total 700 ml Balance -115 ml Intake Oral 585 ml Output Urine Total 700 ml General Appearance: Alert, Awake, No Acute Distress, Afebrile Neuro: No Gross deficits Eyes: PERRLA ENT: Normal Cardiovascular: Normal Rhythm & Peripheral Pulses, No Edema, No JVD Respiratory: No Respiratory Distress GI: Soft and Non-Tender Extremities: Soft and Non Tender, Warm, Pulses Psych: Alert & Oriented X3, Appropriate Mood & Affect Result Diagram: 05/05/18 0524 05/06/18 0728 Assessment and Plan Problems: (1) Acute systolic (congestive) heart failure Status: Acute Assessment & Plan: 05/04: He presented with about 12 hours of worsening HERNÁNDEZ and orthopnea. His weight is unchanged. His last echo on 03/30/18 showed and EF of 30-35%. Will give a dose of Lasix 80mg IV and reassess symptoms and labs tomorrow. He will be on the heart failure diet and get daily wts. 05/05: I will stop Lovenox and start Heparin drip I will increase his Lasix 80mg IV q 12h I will continue his current management I will get BMP, BNP, Troponin in am I will get CXR in am 05/06: I will decrease his Lasix to 80mg po qd I will continue his present management I will get his BNP, BMP in am and Troponin (2) NSTEMI (non-ST elevated myocardial infarction) Status: Acute Assessment & Plan: 05/04: He presented with mild chest pain that has been persistent for about [address] depression in the lateral leads. Likely, secondary to strain from heart failure exacerbation. He is not a candidate for any further stents or by- pass grafting, per his Transmission Tester and Cardiovascular surgeon. He and his family expressed understanding that he is only able to get medical management here and there is no Transmission Tester. NTG paste will be placed (with close observation because of chronic isosorbide use), and he will be started on Lovenox renal and age dosing. ASA, Plavix, Metoprolol and Lipitor will be continued. He requests to be a full code. Will follow troponin. 05/05: II will stop Lovenox and start Heparin drip I will increase his Lasix 80mg IV q 12h I will continue his current management I will get BMP, BNP, Troponin in am I will get CXR in am 05/06: I will repeat his troponin in am I will get 12 leads EKG in am I will get CXR in am (3) DMII (diabetes mellitus, type 2) Status: Chronic Assessment & Plan: He is chronically on 70/30, but will hold for now. Will check glucose AC and HS and cover with SSI level 2. (4) Prostate cancer Status: Chronic Assessment & Plan: Continue Casodex. He also gets q6 month Lupron shots. The next is in a couple of weeks. (5) Stage 4 chronic kidney disease Status: Chronic Assessment & Plan: Baseline creatinine is 3-3.3. He had a fistula recently placed for preparation for dialysis. 05/05: His kidney function is stable I will get BMP in am 05/06: His GFR is 16ml/min I will decrease his Lasix I will repeat his BMP in am Time Spent on Plan of Care: > 30 min Copies to: KURTIS BERNARDO MD Exam Sepsis Risk: No Definite Risk DALLAS HERNANDES MD May 06, 2018 12:59
[2018-05-06] MEDS ORDERED: NS(*) 0.9% 500 ML BAG 500 ML ONE (14:05)
[2018-05-06] MEDS: HEPARIN* SOD/D5W 25000 U/500ML 500 ML IV SCH (16:02)
[2018-05-06] MEDS: traZODone HCL 50 MG TAB PO SCH (21:38)
[2018-05-06] MEDS: ATORVASTATIN 40 MG TAB PO SCH (21:38)
[2018-05-06] MEDS: TAMSULOSIN HCL 0.4 MG CAP PO SCH (21:39)
[2018-05-06] MEDS: BICALUTAMIDE 50 MG TAB PO SCH (21:39)
[2018-05-07 04:50] VITALS: BP 128/55
[2018-05-07 08:41] VITALS: BP 137/56
[2018-05-07 09:17] LABS: PLATELET COUNT, AUTOMATED 168 K/uL (150-450)
[2018-05-07] MEDS: FUROSEMIDE 40 MG/4 ML VIAL IVP SCH (10:37)
[2018-05-07] MEDS: RANITIDINE HCL 150 MG TAB PO SCH (10:37)
[2018-05-07] MEDS: ISOSORBIDE MONONITR 30MG TABCR PO SCH (10:37)
[2018-05-07] MEDS: METOPROLOL SUCC XL 50 MG TABCR 50 MG TAB.ER.24H PO SCH (10:37)
[2018-05-07] MEDS: CLOPIDOGREL BISULFATE 75MG TAB PO SCH (10:38)
[2018-05-07] MEDS: ASPIRIN 81 MG ENTERIC COATED PO SCH (10:38)
--- NOTE | 2018-05-07 10:45 | Hospitalist Depart ---
Discharge Summary Reason for Hosp/Final Diag: (1) Acute systolic (congestive) heart failure Status: Acute Hospital Course & Plan: An echocardiogram from last month did show a decreased ejection fraction at 30-35%. He was treated with several doses of IV Lasix. His weight has decreased approximately 6kg since admission. He is already on chronic treatment with lisinopril and metoprolol. (2) NSTEMI (non-ST elevated myocardial infarction) Status: Acute Hospital Course & Plan: He did present with chest pain and his troponin was found to be slightly elevated. His EKG also showed some ischemic changes. He was deemed not to be a candidate for aggressive intervention. He was treated with nitroglycerin and started on a heparin infusion. He is already on chronic treatment with aspirin and Plavix. His troponin has trended back down. He will follow up with cardiology at the [facility]. (3) DMII (diabetes mellitus, type 2) Status: Chronic Hospital Course & Plan: He is on chronic treatment with insulin 70/30. (4) Prostate cancer Status: Chronic Hospital Course & Plan: Continue Casodex. He also gets q6 month Lupron shots. (5) Stage 4 chronic kidney disease Status: Chronic Hospital Course & Plan: He is being followed by nephrology as an outpatient. Departure Latest Vital Signs Vital Signs 05/07/18 08:41 Temp 97.6 Pulse 60 Resp 20 B/P (MAP) 137/56 (83) Pulse Ox 99 O2 Delivery Nasal Cannula O2 Flow Rate 2.0 Weight (Pounds): 162 Weight (Ounces): 9.0 Result Diagram: 05/07/18 0706 05/06/18 0728 Condition: Improved Discharge: Home, Self Care Discharge Instructions Home Meds Reported Medications Cholecalciferol (Vitamin D3) (VITAMIN D3) 1,000 Unit Tablet, 2000 UNIT PO DAILY , TAB 05/05/18 Sodium Bicarbonate (SODIUM BICARBONATE) 325 Mg Tablet, 325 MG PO BID 05/05/18 Bioflav,Lemon/Vit Bcomp&C (LIPO-FLAVONOID PLUS CAPLET) 1 Each Tablet, 1 EACH PO QDAY 05/05/18 Metoprolol Tartrate (METOPROLOL TARTRATE) 25 Mg Tablet, 2 TAB PO BID, TAB 05/05/18 Ranitidine Hcl (RANITIDINE HCL) 150 Mg Capsule, 150 MG PO BID, CAPSULE 05/04/18 Ketorolac Tromethamine (ACULAR) 5 Ml Drops, 1 DROP OP QID Y for R Eye 05/04/18 Atorvastatin Calcium (ATORVASTATIN CALCIUM) 40 Mg Tablet, 0.5 TAB PO HS, TAB 05/04/18 Leuprolide Acetate (ELIGARD) 45 Mg Disp.syrin, 45 MG SQ [id number] 03/29/18 Bicalutamide (BICALUTAMIDE) 50 Mg Tablet, 50 MG PO HS 03/29/18 Trazodone Hcl (TRAZODONE HCL) 150 Mg Tablet, 150 MG PO QHS 03/29/18 Nitroglycerin (NITROGLYCERIN) 0.4 Mg Tab.subl, 0.4 MG SL Q5MIN 03/29/18 Tamsulosin Hcl (TAMSULOSIN HCL) 0.4 Mg Cap.er.24h, 0.4 MG PO HS, CAP 10/14/16 Lisinopril (LISINOPRIL) 10 Mg Tablet, 5 MG PO HS, TAB 10/14/16 Isosorbide Mononitrate (ISOSORBIDE MONONITRATE ER) 30 Mg Tab.er.24h, 30 MG PO DAILY 10/14/16 Hum Insulin Nph/Reg Insulin Hm (NOVOLIN 70-30 100 UNIT/ML VIAL) 100 Unit/1 Ml Vial, 100 UNIT SQ, VIAL 22 units in the morning 5 units in the evening 10/14/16 Clopidogrel Bisulfate (CLOPIDOGREL) 75 Mg Tablet, 1 TAB PO QDAY, TAB 10/14/16 Aspirin (ASPIR 81) 81 Mg Tablet.dr, 81 MG PO QDAY, TAB 10/14/16 Discontinued Reported Medications Metoprolol Succinate (METOPROLOL SUCCINATE) 50 Mg Tab.er.24h, 1 TAB PO BID, TAB 03/29/18 Ranitidine Hcl (ZANTAC) 150 Mg Tablet, 150 MG PO BID, TAB 03/29/18 [lipoflavonoid] No Conflict Check, 1 TAB PO DAILY 10/14/16 [multivit] No Conflict Check, 1 TAB PO BID 10/14/16 Atorvastatin (LIPITOR) 80 Mg Tab, 0.5 TAB PO QHS, TAB 10/14/16 Diet: Diabetic Activity: As Tolerated Venous Thromboembolism Antithrombotics Is Pt On Any Antithrombotics?: No RAMONITA BERNABE DO May 07, 2018 10:45
[2018-05-07 11:47] VITALS: BP 102/45
[2018-05-07] MEDS: INSULIN HUM LISPRO 100 UN/ML 3 ML VIAL SUBQ PRN (11:53)
[2018-05-07] MEDS ORDERED: FURO80TA10 PO (13:00)
== END 2018-05-07 13:50 | disposition home or self-care (01) | DRG 280 ==
LOC: ER 18:09 → MED 20:26
PROVIDERS: ADMIT Internal Medicine; ATTEND Internal Medicine
DX: I21.4 Non-ST elevation (NSTEMI) myocardial infarction (principal); I50.23 Acute on chronic systolic (congestive) heart failure; I13.0 Hypertensive heart and chronic kidney disease with heart failure and stage 1 through stage 4 chronic kidney disease, or unspecified chronic kidney disease; N18.4 Chronic kidney disease, stage 4 (severe); E11.22 Type 2 diabetes mellitus with diabetic chronic kidney disease; C61 Malignant neoplasm of prostate; I25.10 Atherosclerotic heart disease of native coronary artery without angina pectoris; Z79.4 Long term (current) use of insulin; Z88.8 Allergy status to other drugs, medicaments and biological substances; Z95.1 Presence of aortocoronary bypass graft; Z87.891 Personal history of nicotine dependence; I25.2 Old myocardial infarction
CPT/HCPCS: 36415; 36416; 71045; 82040; 82247; 82310; 82374; 82435; 82565; 82947; 82948; 83880; 84075; 84132; 84155; 84295; 84450; 84460; 84484; 84520; 85025; 85379; 85520; 93005; J1644; J1650; J1940; J2405; J7040; J8999

== ENCOUNTER → 2018-05-04 | Outpatient (CLI) | payer MEDICARE ==
[~2018-05-04] MED LIST changes: +ATOR40TA69 PO; +BIOF1TAB PO; +CHOL10005 PO; +FURO80TA10 PO; +KETO5DRO50 OP; +METO25TA93 PO; +RANI150C17 PO; +SODI325T7 PO
[2018-05-05 11:15] VITALS: BMI 27.6
== END ==
LOC: AMB 17:43
PROVIDERS: ATTEND Nurse Practitioner
DX: R07.1 Chest pain on breathing (principal); R09.02 Hypoxemia
CPT/HCPCS: A0425; A0427

== ENCOUNTER 2019-06-07 16:34 | Emergency (ER) | payer MEDICARE ==
[2018-05-05 11:15] VITALS: BMI 27.6
[~2019-06-07 16:34] MED LIST changes: +AMLO-125 PO; -AMLO-96 PO; +ATOR40TA69 PO; -BICA50TA36 PO; +BICA50TA41 PO; +BIOF1TAB PO; +CHOL10005 PO; +FURO80TA10 PO; +KETO5DRO50 OP; +METO25TA93 PO; -RANI-366 PO; +RANI-54 PO; +RANI150C17 PO; +SODI325T7 PO
--- NOTE | 2019-06-07 16:47 | ER Report ---
History and Physical Time Seen By MD: 16:44 HPI/ROS CHIEF COMPLAINT: Lower extremity edema HISTORY OF PRESENT ILLNESS: 84-year-old male patient presents to emergency room with complaint of bilateral lower extremity edema. Patient states that he's been having edema for the past few days. He states that when he lays down at night that seems to improve. He states that the right leg seems to be the worse, the left leg seems to be better. Patient states he does have pain around the ankles. He describes it as needles poking into the skin around the ankles. He states that he is not taking any medication for this. He denies any chest pain, shor tness breath, nausea, vomiting or diarrhea. Patient states he's currently taking a blood thinner, Plavix and a baby aspirin, which she's been taking since he had open-heart surgery 30 years ago. Patient states that he was talking with his provider which keeps tabs on his blood sugar. He states when he discussed with him about the swelling that they wanted him to come in and be evaluated for possible blood clots. REVIEW OF SYSTEMS: Respiratory: No cough, no dyspnea. Cardiovascular: No chest pain, no palpitations. Gastrointestinal: No vomiting, no abdominal pain. Musculoskeletal: No back pain. Allergies: Coded Allergies: codeine (Verified Allergy, Mild, DIZZY, 05/04/18) Home Meds Active Scripts Furosemide (LASIX) 80 Mg Tablet, 1 TAB PO QDAY, #30 TAB Prov:RAMONITA BERNABE DO 05/07/18 Reported Medications Abiraterone Acetate (ZYTIGA) 250 Mg Tablet, 1000 MG PO QDAY 06/07/19 Cholecalciferol (Vitamin D3) (VITAMIN D3) 1,000 Unit Tablet, 2000 UNIT PO DAILY, TAB 05/05/18 Sodium Bicarbonate (SODIUM BICARBONATE) 325 Mg Tablet, 325 MG PO BID 05/05/18 Bioflav,Lemon/Vit Bcomp&C (LIPO-FLAVONOID PLUS CAPLET) 1 Each Tablet, 1 EACH PO QDAY 05/05/18 Metoprolol Tartrate (METOPROLOL TARTRATE) 25 Mg Tablet, 2 TAB PO BID, TAB 05/05/18 Ranitidine Hcl (RANITIDINE HCL) 150 Mg Capsule, 150 MG PO BID, CAPSULE 05/04/18 Atorvastatin Calcium (ATORVASTATIN CALCIUM) 40 Mg Tablet, 0.5 TAB PO HS, TAB 05/04/18 Leuprolide Acetate (ELIGARD) 45 Mg Disp.syrin, 45 MG SQ [id number] 03/29/18 Nitroglycerin (NITROGLYCERIN) 0.4 Mg Tab.subl, 0.4 MG SL Q5MIN 03/29/18 Tamsulosin Hcl (TAMSULOSIN HCL) 0.4 Mg Cap.er.24h, 0.4 MG PO HS, CAP 10/14/16 Hum Insulin Nph/Reg Insulin Hm (NOVOLIN 70-30 100 UNIT/ML VIAL) 100 Unit/1 Ml Vial, 100 UNIT SQ, VIAL 22 units in the morning 5 units in the evening 10/14/16 Clopidogrel Bisulfate (CLOPIDOGREL) 75 Mg Tablet, 1 TAB PO QDAY, TAB 10/14/16 Aspirin (ASPIR 81) 81 Mg Tablet.dr, 81 MG PO QDAY, TAB 10/14/16 Discontinued Reported Medications Ketorolac Tromethamine (ACULAR) 5 Ml Drops, 1 DROP OP QID PRN for R Eye 05/04/18 Bicalutamide (BICALUTAMIDE) 50 Mg Tablet, 50 MG PO HS 03/29/18 Trazodone Hcl (TRAZODONE HCL) 150 Mg Tablet, 150 MG PO QHS 03/29/18 Lisinopril (LISINOPRIL) 10 Mg Tablet, 5 MG PO HS, TAB 10/14/16 Isosorbide Mononitrate (ISOSORBIDE MONONITRATE ER) 30 Mg Tab.er.24h, 30 MG PO DAILY 10/14/16 Past Medical/Surgical History Hypertension, coronary artery disease with history of CABG in 4 stents, CHF, type 2 diabetes, stage IV chronic kidney disease, prostate cancer Reviewed Nurses Notes: Yes Hx Smoking: Yes (quit 50 yrs ago) Smoking Status: Former Smoker Hx Substance Use Disorder: No Hx Alcohol Use: No Constitutional Vital Sign - Last 24 Hours 06/07/19 06/07/19 06/07/19 06/07/19 16:39 16:41 16:48 17:00 Temp 98.5 Pulse 67 Resp 12 B/P (MAP) 163/84 (110) 164/81 (108) 164/81 148/77 (100) Pulse Ox 95 O2 Delivery Room Air 06/07/19 06/07/19 06/07/19 06/07/19 17:04 17:30 17:34 18:00 Pulse 65 62 Resp 22 15 B/P (MAP) 148/66 (93) 144/71 (95) Pulse Ox 91 92 06/07/19 06/07/19 06/07/19 06/07/19 18:04 18:09 18:39 19:09 Pulse 62 63 64 76 Resp 18 17 6 11 Pulse Ox 90 93 93 92 Physical Exam General Appearance: The patient is alert, has no immediate need for airway protection and no current signs of toxicity. Respiratory: Chest is non tender, lungs are clear to auscultation. Cardiac: regular rate and rhythm Gastrointestinal: Abdomen is soft and non tender, no masses, bowel sounds zechariah l. Musculoskeletal: Neck: Neck is supple and non tender. Extremities have full range of motion and are non tender. Patient does have swelling most notably to the right lower extremity, there is no erythema, no redness. Skin: No rashes or lesions. DIFFERENTIAL DIAGNOSIS: After history and physical exam differential diagnosis was considered for congestive heart failure, DVT, TX. Medical Decision Making Data Points Result Diagram: 06/07/19 1730 06/07/19 1730 Laboratory Hematology Test 06/07/19 17:30 White Blood Count 3.2 k/uL (4.5-11.0) L Red Blood Count 3.62 M/uL (4.00-5.60) L Hemoglobin 11.2 g/dL (14.0-18.0) L Hematocrit 32.8 % (42.0-52.0) L Mean Corpuscular Volume 90.5 fL (80.0-96.0) Mean Corpuscular Hemoglobin 30.8 pg (26.0-33.0) Mean Corpuscular Hemoglobin Concent 34.0 g/dL (32.0-36.0) Red Cell Distribution Width 13.5 % (11.5-14.5) Platelet Count 120 K/uL (150-450) L Mean Platelet Volume 10.2 fL (7.2-11.1) Neutrophils (%) (Auto) 55.7 % (39.4-72.5) Lymphocytes (%) (Auto) 24.6 % (17.6-49.6) Monocytes (%) (Auto) 14.0 % (4.1-12.4) H Eosinophils (%) (Auto) 4.7 % (0.4-6.7) Basophils (%) (Auto) 1.0 % (0.3-1.4) Nucleated RBC Relative Count (auto) 0.0 /100WBC Neutrophils # (Auto) 1.8 K/uL (2.0-7.4) L Lymphocytes # (Auto) 0.8 K/uL (1.3-3.6) L Monocytes # (Auto) 0.4 K/uL (0.3-1.0) Eosinophils # (Auto) 0.2 K/uL (0.0-0.5) Basophils # (Auto) 0.0 K/uL (0.0-0.1) Nucleated RBC Absolute Count (auto) 0.00 K/uL Chemistry Test 06/07/19 17:30 Sodium Level 137 mmol/L (137-145) Potassium Level 3.7 mmol/L (3.5-5.0) Chloride Level 107 mmol/L (98-107) Carbon Dioxide Level 20 mmol/L (22-30) Blood Urea Nitrogen 27 mg/dl (9-21) Creatinine 2.80 mg/dl (0.66-1.25) Glomerular Filtration Rate Calc 21.7 Random Glucose 248 mg/dl (75-110) Calcium Level 8.6 mg/dl (8.4-10.2) Total Bilirubin 0.5 mg/dl (0.2-1.3) Aspartate Amino Transf (AST/SGOT) 27 U/L (0-35) Alanine Aminotransferase (ALT/SGPT) 24 U/L (0-56) Alkaline Phosphatase 94 U/L (0-126) Troponin I 0.040 ng/ml B-Type Natriuretic Peptide 722 pg/ml (0-100) Total Protein 5.5 g/dl (6.3-8.2) Albumin 3.0 g/dl (3.5-5.0) Coagulation Test 06/07/19 17:30 Prothrombin Time 14.3 seconds (12.0-14.4) Prothromb Time International Ratio 1.10 Activated Partial Thromboplast Time 31 seconds (23-35) EKG/Imaging EKG Interpretation 12 lead EKG: Rhythm: normal sinus rhythm Loyal: normal QRS: normal ST segments: Nonspecific ST abnormality Imaging 2 VIEWS CHEST INDICATION: Chest pain. COMPARISON: 05/06/2018. FINDINGS: Cardiomediastinal silhouette and pulmonary vessels within normal limits. Sternotomy changes and CABG changes. There is no focal infiltrate or lobar consolidation. There is no pneumothorax or pleural effusion. Continued pleural calcifications along the left hemidiaphragm and costophrenic angle region. There is continued mild blunting of the right costophrenic angle likely from pleural thickening or small effusion. Upper abdomen is unremarkable. No acute bony abnormality. IMPRESSION: 1. No acute cardiopulmonary process. Other stable chronic findings as above. Report Dictated By: Destin Perez at 06/07/2019 7:05 PM Report E-Signed By: Destin Perez at 06/07/2019 7:07 PM Bilateral lower extremity duplex venous ultrasound Indication: Leg swelling Comparison: None Available Findings: Duplex Doppler and color flow imaging was performed. The bilateral common femoral, femoral, and popliteal veins are all patent and compressible with normal Doppler wave forms. There are normal responses to augmentation. The bilateral posterior tibial and peroneal veins are clear. The proximal greater saphenous veins are also normal. The left popliteal fossa does show 3.3 cm Lopes's cyst. Subcutaneous tissues are otherwise unremarkable. Impression: 1. No evidence of deep venous thrombosis of the bilateral lower extremities. 2. Left Lopes's cyst. Report Dictated By: Destin Perez at 06/07/2019 6:44 PM Report E-Signed By: Destin Perez at 06/07/2019 6:45 PM ED Course/Re-evaluation ED Course Patient was admitted to exam room, history and physical were obtained. Differential diagnoses were considered. On examination lungs are clear, heart is regular, abdomen is soft and nontender. Patient does have noticeable swelling to the right lower extremity edema. There is minimal swelling to the left lower extremity. An IV was started, a CBC, CMP, BNP, EKG, chest x-ray, troponin, bilateral venous ultrasound were done. Lab work did show that the patient had an elevated BNP of 733. That significantly improved when compared with last year when he was 1600. Troponin was indeterminate, however believe is likely elevated secondary to the kidney failure the patient has. CMP showed the patient had a creatinine of 2.8 and a BUN of 27. His blood sugar was elevated 248. Ultrasound was negative for any DVTs. EKG did show a sinus rhythm with some ST abnormality. We will go ahead and discharge patient home at this time. Is my belief that the patient is likely having dependent edema which is exacerbated by fluid overload. We will go ahead and have the patient take his furosemide 40 mg daily for the next 3 days and follow-up with his primary care provider next week. As I was discussing the plan with the patient and his family the patient mentioned that he became very hypotensive when taking the Lasix in the past. We will go ahead and have him check his blood pressure prior to taking his Lasix. If his systolic blood pressure is less than 120 and like him to hold it that day. I discussed this with the patient and his family and they verbalized understanding and agreement with plan. Decision to Disposition Date: Jun 07, 2019 Decision to Disposition Time: 19:15 Depart Departure Latest Vital Signs Vital Signs Date Time Temp Pulse Resp B/P (MAP) Pulse Ox O2 Delivery O2 Flow Rate FiO2 06/07/19 19:09 76 11 92 06/07/19 18:00 144/71 (95) 06/07/19 16:48 98.5 Room Air Impression: Primary Impression: Bilateral lower extremity edema Condition: Improved Disposition: HOME OR SELF-CARE Patient Instructions: Leg Edema (ED) Additional Instructions: Get plenty of rest. Continue with your current diet. Follow up with your primary care provider in the next week. Return to the ER if condition worsens. I think that the swelling is caused from having your feet down. We are going to have you take your Furosemide 40mg daily for the next 3 days. Check your blood pressure prior to taking the Furosemide, if your systolic pressure (the top number) is less than 120 don't take the Furosemide that day. BRYAN ALDANAP Jun 07, 2019 16:47
--- NOTE | 2019-06-07 17:08 | EKG ---
FACILITY: [facility] PATIENT NAME: SKY GRANDE : [id number] MR: [id number] V: [id number] EXAM DATE: ORDERING PHYSICIAN: BRYAN ALDANA TECHNOLOGIST: Test Reason : lower extremity edema Blood Pressure : / mmHG Vent. Rate : 065 BPM Atrial Rate : 065 BPM P-R Int : 208 ms QRS Dur : 108 ms QT Int : 466 ms P-R-T Axes : 073 016 132 degrees QTc Int : 484 ms Normal sinus rhythm Septal infarct (cited on or before 30-MAR-2018) ST and T wave abnormality, consider lateral ischemia Abnormal ECG When compared with ECG of 04-MAY-2018 18:08, ST depression is less pronounced in lateral leads Confirmed by Madan Alex ([id number]) on 06/08/2019 7:35:10 AM Referred By: Confirmed By:Madan Summers
[2019-06-07 17:47] LABS: PLATELET COUNT, AUTOMATED 120 K/uL (150-450)
[2019-06-07 17:55] LABS: INR 1.1
[2019-06-07] MEDS ORDERED: ABIR250T PO (17:57)
[2019-06-07 18:00] VITALS: BP 144/71
--- NOTE | 2019-06-07 18:52 | RADIOLOGY IMAGING REPORT ---
FACILITY: [facility] PATIENT NAME: Misael Gil : 1935 MR: [id number] V: [id number] EXAM DATE: ORDERING PHYSICIAN: BRYAN ALDANA TECHNOLOGIST: Location: [facility] - [place] Patient: Misael Gil : 1935 Visit/Account:[id number] Date of Sevice: 06/07/2019 Bilateral lower extremity duplex venous ultrasound Indication: Leg swelling Comparison: None Available Findings: Duplex Doppler and color flow imaging was performed. The bilateral common femoral, femoral , and popliteal veins are all patent and compressible with normal Doppler wave forms. There are norm al responses to augmentation. The bilateral posterior tibial and peroneal veins are clear. The proximal greater saphenous veins are also normal. The left popliteal fossa does show 3.3 cm Lopes's cyst. Subcutaneous tissues are otherwise unremarkab le. Impression: 1. No evidence of deep venous thrombosis of the bilateral lower extremities. 2. Left Lopes's cyst. Report Dictated By: Destin Perez at 06/07/2019 6:44 PM Report E-Signed By: Destin Perez at 06/07/2019 6:45 PM WSN:[id number]
--- NOTE | 2019-06-07 19:13 | RADIOLOGY IMAGING REPORT ---
FACILITY: [facility] PATIENT NAME: Misael Gil : 1935 MR: [id number] V: [id number] EXAM DATE: ORDERING PHYSICIAN: BRYAN ALDANA TECHNOLOGIST: Location: [facility] - [place] Patient: Misael Gil : 1935 Visit/Account:[id number] Date of Sevice: 06/07/2019 2 VIEWS CHEST INDICATION: Chest pain. COMPARISON: 05/06/2018. FINDINGS: Cardiomediastinal silhouette and pulmonary vessels within normal limits. Sternotomy changes and CABG changes. There is no focal infiltrate or lobar consolidation. There is no pneumothorax or pleural effusion. Continued pleural calcifications along the left hemidiaphragm and costophrenic angle region. There is continued mild blunting of the right costophrenic angle likely from pleural thickening or small effu martín. Upper abdomen is unremarkable. No acute bony abnormality. IMPRESSION: 1. No acute cardiopulmonary process. Other stable chronic findings as above. Report Dictated By: Destin Perez at 06/07/2019 7:05 PM Report E-Signed By: Destin Perez at 06/07/2019 7:07 PM WSN:[id number]
== END 2019-06-07 19:32 | disposition home or self-care (01) ==
LOC: ER 16:56
DX: R60.0 Localized edema (principal); R94.31 Abnormal electrocardiogram [ECG] [EKG]; R07.9 Chest pain, unspecified; J94.8 Other specified pleural conditions; M71.22 Synovial cyst of popliteal space [Baker], left knee
CPT/HCPCS: 71046; 82040; 82247; 82310; 82374; 82435; 82565; 82947; 83880; 84075; 84132; 84155; 84295; 84450; 84460; 84484; 84520; 85025; 85610; 85730; 93005; 93970; 99284